=== PATIENT | female | born 1925 | race Caucasian/White ===

== ENCOUNTER → 2016-05-28 | Outpatient (CLI) | payer OTHER ==
[~2016-05-28] MED LIST: ACET-1311 PO; ASPI1TAB48 PO; BISA10SU7 PEG; CHOL2000 PO; CMD4 PO; DICL1GEL12 TOP; DILT30TA PO; EPP3/2 IM; LEVO25TA5 PO; LNX125 PO; METO-217 PO; MOML PO; PRT40 PO; SODIENE PR; TPRSR50 PO; WARF-283 PO; WARF-285 PO
[2016-05-28 08:14] LABS: PROTHROMBIN TIME (PATIENT) 46.8 SECONDS (9.0-12.0)
[2016-05-28 08:18] LABS: INR 4.1 (0.9-1.1)
== END ==
LOC: C.LABCC 07:42
PROVIDERS: ATTEND Internal Medicine
DX: I48.91 Unspecified atrial fibrillation (principal)

== ENCOUNTER → 2016-05-30 | Outpatient (CLI) | payer OTHER ==
[~2016-05-30] MED LIST changes: -BISA10SU7 PEG; -CHOL2000 PO; -DICL1GEL12 TOP; -LEVO25TA5 PO; -MOML PO; -PRT40 PO; -SODIENE PR; -WARF-283 PO; -WARF-285 PO
[2016-05-30 09:01] LABS: INR 2.6 (0.9-1.1); PROTHROMBIN TIME (PATIENT) 29.4 SECONDS (9.0-12.0)
== END ==
LOC: C.LABCC 08:36
PROVIDERS: ATTEND Internal Medicine
DX: I48.91 Unspecified atrial fibrillation (principal)

== ENCOUNTER → 2016-06-04 | Outpatient (CLI) | payer OTHER ==
[2016-06-04 08:42] LABS: INR 2.6 (0.9-1.1); PROTHROMBIN TIME (PATIENT) 28.9 SECONDS (9.0-12.0)
== END | disposition home or self-care (01) ==
LOC: C.LABCC 08:09
PROVIDERS: ATTEND Internal Medicine
DX: I48.91 Unspecified atrial fibrillation (principal)

== ENCOUNTER → 2016-06-12 | Outpatient (CLI) | payer OTHER ==
[2016-06-12 08:38] LABS: PROTHROMBIN TIME (PATIENT) 46.3 SECONDS (9.0-12.0)
[2016-06-12 09:14] LABS: INR 4.1 (0.9-1.1)
== END ==
LOC: C.LABCC 07:59
PROVIDERS: ATTEND Internal Medicine
DX: I48.91 Unspecified atrial fibrillation (principal)

== ENCOUNTER → 2016-06-19 | Outpatient (CLI) | payer OTHER ==
[2016-06-19 09:11] LABS: PROTHROMBIN TIME (PATIENT) 21.7 SECONDS (9.0-12.0)
== END ==
LOC: C.LABCC 08:41
PROVIDERS: ATTEND Internal Medicine
DX: I48.91 Unspecified atrial fibrillation (principal)

== ENCOUNTER → 2016-06-27 | Outpatient (CLI) | payer OTHER ==
[2016-06-27 10:31] LABS: INR 1.9 (0.9-1.1); PROTHROMBIN TIME (PATIENT) 20.8 SECONDS (9.0-12.0)
== END | disposition home or self-care (01) ==
LOC: C.LABCC 09:29
PROVIDERS: ATTEND Internal Medicine
DX: I48.91 Unspecified atrial fibrillation (principal)

== ENCOUNTER → 2016-07-12 | Outpatient (CLI) | payer OTHER ==
[2016-07-12 09:25] LABS: INR 1.8 (0.9-1.1); PROTHROMBIN TIME (PATIENT) 20.1 SECONDS (9.0-12.0)
== END | disposition home or self-care (01) ==
LOC: C.LABCC 08:18
PROVIDERS: ATTEND Internal Medicine
DX: I48.91 Unspecified atrial fibrillation (principal)

== ENCOUNTER → 2016-07-22 | Outpatient (CLI) | payer OTHER ==
[2016-07-22 08:45] LABS: INR 2.4 (0.9-1.1); PROTHROMBIN TIME (PATIENT) 26.1 SECONDS (9.0-12.0)
== END ==
LOC: C.LABCC 08:21
PROVIDERS: ATTEND Internal Medicine
DX: I48.0 Paroxysmal atrial fibrillation (principal)

== ENCOUNTER → 2016-07-29 | Outpatient (CLI) | payer OTHER ==
[2016-07-29 08:50] LABS: INR 2.3 (0.9-1.1); PROTHROMBIN TIME (PATIENT) 25.4 SECONDS (9.0-12.0)
== END ==
LOC: C.LABCC 08:24
PROVIDERS: ATTEND Internal Medicine
DX: I48.0 Paroxysmal atrial fibrillation (principal)

== ENCOUNTER → 2016-08-12 | Outpatient (CLI) | payer OTHER ==
[2016-08-12 10:53] LABS: INR 2.1 (0.9-1.1); PROTHROMBIN TIME (PATIENT) 23.7 SECONDS (9.0-12.0)
== END ==
LOC: C.LABCC 08:57
PROVIDERS: ATTEND Internal Medicine
DX: I48.0 Paroxysmal atrial fibrillation (principal)

== ENCOUNTER → 2016-08-27 | Outpatient (CLI) | payer OTHER ==
[2016-08-27 09:01] LABS: INR 2.2 (0.9-1.1); PROTHROMBIN TIME (PATIENT) 24.8 SECONDS (9.0-12.0)
== END ==
LOC: C.LABCC 08:17
PROVIDERS: ATTEND Internal Medicine
DX: I48.0 Paroxysmal atrial fibrillation (principal)

== ENCOUNTER → 2016-10-09 | Outpatient (CLI) | payer OTHER ==
[2016-10-09 12:15] LABS: MEAN CELL VOLUME 88.8 fL (80-100); MEAN CORPUSCULAR HEMOGLOBIN 29.2 pg (25-34); MEAN CORPUSCULAR HGB CONC 32.9 g/dl (32-36); PLATELET COUNT 185 K/uL (130-400); RED BLOOD COUNT 4.28 M/uL (4.2-5.4); WHITE BLOOD COUNT 5.73 K/uL (4.8-10.8)
== END | disposition home or self-care (01) ==
LOC: C.LABCC 14:00
PROVIDERS: ATTEND Internal Medicine
DX: D01.0 Carcinoma in situ of colon (principal)

== ENCOUNTER → 2016-10-28 | Outpatient (CLI) | payer OTHER ==
[2016-10-28 08:20] LABS: INR 1.9 (0.9-1.1); PROTHROMBIN TIME (PATIENT) 21.4 SECONDS (9.0-12.0)
== END ==
LOC: C.LABCC 07:50
PROVIDERS: ATTEND Internal Medicine
DX: I48.0 Paroxysmal atrial fibrillation (principal)

== ENCOUNTER → 2016-10-30 | Outpatient (CLI) | payer OTHER ==
[2016-10-30 12:35] LABS: ALT/SGPT 17 U/L (12-78); AST/SGOT 12 U/L (15-37); BLOOD UREA NITROGEN 21 mg/dl (7-18); CALCIUM 8.5 mg/dl (8.5-10.1); CARBON DIOXIDE 29 mmol/L (21-32); CHLORIDE 111 mmol/L (98-107); GLUCOSE 76 mg/dl (70-99); POTASSIUM 4.4 mmol/L (3.5-5.1); SODIUM 146 mmol/L (136-145)
[2016-10-30 12:46] LABS: ALB/GLOB RATIO 1.1 (0.9-2); ALKALINE PHOSPHATASE 68 U/L (45-117)
== END ==
LOC: C.LABCC 11:36
PROVIDERS: ATTEND Internal Medicine
DX: I10 Essential (primary) hypertension (principal); I48.0 Paroxysmal atrial fibrillation; D64.9 Anemia, unspecified; E55.9 Vitamin D deficiency, unspecified

== ENCOUNTER → 2016-11-05 | Outpatient (CLI) | payer OTHER | LOC: C.LABCC 07:50 | DX: I48.0 Paroxysmal atrial fibrillation (principal) ==

== ENCOUNTER → 2016-11-06 | Outpatient (CLI) | payer OTHER ==
[2016-11-06 08:49] LABS: INR 1.5 (0.9-1.1); PROTHROMBIN TIME (PATIENT) 15.9 SECONDS (9.0-12.0)
== END ==
LOC: C.LABCC 08:09
PROVIDERS: ATTEND Internal Medicine
DX: I48.0 Paroxysmal atrial fibrillation (principal)

== ENCOUNTER → 2016-11-15 | Outpatient (CLI) | payer OTHER ==
[2016-11-15 08:44] LABS: INR 2.1 (0.9-1.1); PROTHROMBIN TIME (PATIENT) 23.7 SECONDS (9.0-12.0)
== END ==
LOC: C.LABCC 07:47
PROVIDERS: ATTEND Internal Medicine
DX: I48.0 Paroxysmal atrial fibrillation (principal)

== ENCOUNTER → 2016-11-25 | Outpatient (CLI) | payer OTHER ==
[2016-11-25 15:48] LABS: INR 2.6 (0.9-1.1); PROTHROMBIN TIME (PATIENT) 29.4 SECONDS (9.0-12.0)
== END ==
LOC: C.LABCC 12:43
PROVIDERS: ATTEND Internal Medicine
DX: I48.0 Paroxysmal atrial fibrillation (principal)

== ENCOUNTER → 2016-12-04 | Outpatient (CLI) | payer OTHER ==
[2016-12-04 08:50] LABS: INR 2.2 (0.9-1.1); PROTHROMBIN TIME (PATIENT) 24.7 SECONDS (9.0-12.0)
== END ==
LOC: C.LABCC 07:56
PROVIDERS: ATTEND Internal Medicine
DX: I48.0 Paroxysmal atrial fibrillation (principal)

== ENCOUNTER → 2016-12-12 | Outpatient (CLI) | payer OTHER ==
[2016-12-12 10:45] LABS: THYROID STIMULATING HORMONE 2.48 uIu/ml (0.300-4.500)
== END ==
LOC: C.LABCC 10:13
PROVIDERS: ATTEND Internal Medicine
DX: E03.9 Hypothyroidism, unspecified (principal)

== ENCOUNTER → 2017-01-02 | Outpatient (CLI) | payer OTHER ==
[2017-01-02 11:05] LABS: PROTHROMBIN TIME (PATIENT) 40.7 SECONDS (9.0-12.0)
[2017-01-02 11:18] LABS: INR 3.6 (0.9-1.1)
== END ==
LOC: C.LABCC 09:50
PROVIDERS: ATTEND Internal Medicine
DX: I48.0 Paroxysmal atrial fibrillation (principal); E55.9 Vitamin D deficiency, unspecified

== ENCOUNTER → 2017-01-03 | Outpatient (CLI) | payer OTHER | END | disposition home or self-care (01) | LOC: C.LABCC 07:47 | PROVIDERS: ATTEND Internal Medicine | DX: E55.9 Vitamin D deficiency, unspecified (principal) ==

== ENCOUNTER → 2017-01-10 | Outpatient (CLI) | payer OTHER ==
[2017-01-10 08:51] LABS: INR 2.9 (0.9-1.1); PROTHROMBIN TIME (PATIENT) 31.9 SECONDS (9.0-12.0)
== END ==
LOC: C.LABCC 08:34
PROVIDERS: ATTEND Internal Medicine
DX: I48.0 Paroxysmal atrial fibrillation (principal)

== ENCOUNTER → 2017-01-15 | Outpatient (CLI) | payer OTHER | LOC: C.LABCC 09:48 | PROVIDERS: ATTEND Internal Medicine | DX: I48.0 Paroxysmal atrial fibrillation (principal) ==

== ENCOUNTER → 2017-01-16 | Outpatient (CLI) | payer OTHER ==
[2017-01-16 09:24] LABS: INR 3.2 (0.9-1.1); PROTHROMBIN TIME (PATIENT) 35.4 SECONDS (9.0-12.0)
== END ==
LOC: C.LABCC 08:27
PROVIDERS: ATTEND Internal Medicine
DX: I48.0 Paroxysmal atrial fibrillation (principal)

== ENCOUNTER → 2017-01-23 | Outpatient (CLI) | payer OTHER ==
[2017-01-23 09:21] LABS: PROTHROMBIN TIME (PATIENT) 43.4 SECONDS (9.0-12.0)
[2017-01-23 09:23] LABS: INR 3.8 (0.9-1.1)
== END ==
LOC: C.LABCC 08:45
PROVIDERS: ATTEND Internal Medicine
DX: I48.0 Paroxysmal atrial fibrillation (principal)

== ENCOUNTER → 2017-01-28 | Outpatient (CLI) | payer OTHER ==
[2017-01-28 12:03] LABS: INR 3.2 (0.9-1.1); PROTHROMBIN TIME (PATIENT) 36.1 SECONDS (9.0-12.0)
== END ==
LOC: C.LABCC 11:36
PROVIDERS: ATTEND Internal Medicine
DX: I48.0 Paroxysmal atrial fibrillation (principal)

== ENCOUNTER → 2017-02-03 | Outpatient (CLI) | payer OTHER ==
[2017-02-03 08:32] LABS: INR 2.7 (0.9-1.1); PROTHROMBIN TIME (PATIENT) 30.1 SECONDS (9.0-12.0)
== END ==
LOC: C.LABCC 08:06
PROVIDERS: ATTEND Internal Medicine
DX: I48.0 Paroxysmal atrial fibrillation (principal)

== ENCOUNTER → 2017-02-10 | Outpatient (CLI) | payer OTHER ==
[2017-02-10 10:59] LABS: INR 1.8 (0.9-1.1); PROTHROMBIN TIME (PATIENT) 19.2 SECONDS (9.0-12.0)
== END ==
LOC: C.LABCC 09:40
PROVIDERS: ATTEND Internal Medicine
DX: I48.0 Paroxysmal atrial fibrillation (principal)

== ENCOUNTER → 2017-02-13 | Outpatient (CLI) | payer OTHER | LOC: C.LABCC 08:02 | PROVIDERS: ATTEND Internal Medicine | DX: E03.9 Hypothyroidism, unspecified (principal) ==

== ENCOUNTER → 2017-02-17 | Outpatient (CLI) | payer OTHER ==
[2017-02-17 08:13] LABS: INR 1.7 (0.9-1.1); PROTHROMBIN TIME (PATIENT) 18.2 SECONDS (9.0-12.0)
== END ==
LOC: C.LABCC 07:47
PROVIDERS: ATTEND Internal Medicine
DX: I48.0 Paroxysmal atrial fibrillation (principal)

== ENCOUNTER → 2017-02-24 | Outpatient (CLI) | payer OTHER ==
[2017-02-24 08:37] LABS: INR 2.4 (0.9-1.1); PROTHROMBIN TIME (PATIENT) 27.2 SECONDS (9.0-12.0)
== END ==
LOC: C.LABCC 07:55
PROVIDERS: ATTEND Internal Medicine
DX: I48.0 Paroxysmal atrial fibrillation (principal)

== ENCOUNTER → 2017-03-03 | Outpatient (CLI) | payer OTHER ==
[2017-03-03 10:06] LABS: INR 2.7 (0.9-1.1); PROTHROMBIN TIME (PATIENT) 29.9 SECONDS (9.0-12.0)
== END ==
LOC: C.LABCC 09:21
PROVIDERS: ATTEND Internal Medicine
DX: I48.0 Paroxysmal atrial fibrillation (principal)

== ENCOUNTER → 2017-03-10 | Outpatient (CLI) | payer OTHER ==
[2017-03-10 09:18] LABS: INR 2.2 (0.9-1.1); PROTHROMBIN TIME (PATIENT) 24.7 SECONDS (9.0-12.0)
== END ==
LOC: C.LABCC 08:54
PROVIDERS: ATTEND Internal Medicine
DX: I48.0 Paroxysmal atrial fibrillation (principal)

== ENCOUNTER → 2017-03-24 | Outpatient (CLI) | payer OTHER ==
[2017-03-24 08:34] LABS: INR 2.3 (0.9-1.1); PROTHROMBIN TIME (PATIENT) 25.3 SECONDS (9.0-12.0)
== END ==
LOC: C.LABCC 08:14
PROVIDERS: ATTEND Internal Medicine
DX: I48.0 Paroxysmal atrial fibrillation (principal)

== ENCOUNTER → 2017-04-07 | Outpatient (CLI) | payer OTHER ==
[2017-04-07 09:21] LABS: INR 1.9 (0.9-1.1); PROTHROMBIN TIME (PATIENT) 20.9 SECONDS (9.0-12.0)
== END | disposition home or self-care (01) ==
LOC: C.LABCC 08:51
PROVIDERS: ATTEND Internal Medicine
DX: I48.0 Paroxysmal atrial fibrillation (principal)

== ENCOUNTER → 2017-04-15 | Outpatient (CLI) | payer OTHER ==
[2017-04-15 08:12] LABS: INR 2.6 (0.9-1.1); PROTHROMBIN TIME (PATIENT) 29.3 SECONDS (9.0-12.0)
== END ==
LOC: C.LABCC 07:53
PROVIDERS: ATTEND Internal Medicine
DX: I48.0 Paroxysmal atrial fibrillation (principal)

== ENCOUNTER → 2017-04-23 | Outpatient (CLI) | payer OTHER ==
[2017-04-23 09:11] LABS: INR 2.8 (0.9-1.1); PROTHROMBIN TIME (PATIENT) 31.8 SECONDS (9.0-12.0)
== END ==
LOC: C.LABCC 08:37
PROVIDERS: ATTEND Internal Medicine
DX: I48.0 Paroxysmal atrial fibrillation (principal)

== ENCOUNTER → 2017-05-09 | Outpatient (CLI) | payer OTHER ==
[2017-05-09 08:32] LABS: INR 2.7 (0.9-1.1); PROTHROMBIN TIME (PATIENT) 27.8 SECONDS (9.0-12.0)
== END ==
LOC: C.LABCC 07:59
PROVIDERS: ATTEND Internal Medicine
DX: I48.0 Paroxysmal atrial fibrillation (principal)

== ENCOUNTER 2017-05-19 10:39 | Inpatient (IN) | payer OTHER ==
[2017-05-19] VITALS (10 sets, daily range): BP systolic 96–119; BP diastolic 45–80; PULSE 85–113; TEMP 36.5–37; O2SAT 94–99; Ht 165.1 cm; Wt 82.5 kg
[~2017-05-19] VITALS: Ht 165.1 cm; Wt 82.5 kg
[2017-05-19] MEDS ORDERED: DILTIAZEM BOLUS / DRIP IV STA (10:47)
[2017-05-19] MEDS ORDERED: SODIUM CHLORIDE 0.9% 1000ML 500 ML IV STA (10:47)
[2017-05-19] MEDS ORDERED: ONDANSETRON INJ 2 MG/ML 2 ML VIAL IV STA (10:53)
[2017-05-19] MEDS ORDERED: DILTIAZEM HCL 5 MG/ML 5 ML VIAL BOLUS/OMNI IV ONE (11:00)
[2017-05-19] MEDS ORDERED: DILTIAZEM HCL INJ 125 MG in DEXTROSE 5% 100ML IV PRN (11:00)
--- NOTE | 2017-05-19 11:00 | EMERGENCY ROOM VISIT NOTE ---
History Report prepared by Donovan: Fior Ascencio Under the Supervision of: Dr. Kodi Hernandez M.D. First contact with patient: 10:42 Stated Complaint: GI ASSEESSMENT History of Present Illness The patient is a 89 year old female who presents to the Emergency Room with complaints of an episode of vomiting "coffee ground" like material. The patient has dementia and a colostomy. The patient's colostomy had black stool in it as well. Per EMS, the patient's blood sugar level was 166 upon arrival. The patient has a history of atrial fibrillation and is on Coumadin. Her initial blood pressure pressure was low but has rebounded with IV fluids. The patient is a full code. History limited secondary to the patient's dementia. Source of History: patient History Limited By: dementia Position: other (generalized) Quality: other (vomiting) Timing: other (episode) Associated Symptoms: + vomiting Review of Systems ROS limited secondary to the patient's dementia. 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 (2) History of - hysterectomy Family History Diabetes mellitus FHx: heart disease Social History Smoking Status: Never Smoker Alcohol Use: none Drug Use: none Marital Status: Housing Status: lives alone Occupation Status: retired Current/Historical Medications Scheduled Aspirin (Aspirin Low Dose), 81 MG PO DAILY Cholecalciferol (Vitamin D3), 1 CAP PO DAILY Diclofenac Sodium (Topical) (Voltaren 1% Top Gel), 2 GM TOP QID Diclofenac Sodium (Topical) (Voltaren 1% Top Gel), 4 GM TOP QID Digoxin (Digoxin), 0.125 MG PO DAILY@16 Diltiazem Hcl (Cardizem), 30 MG PO BID Levothyroxine Sodium (Levothyroxine Sodium), 1 TAB PO DAILY Metoprolol Succinate (Metoprolol Succinate ER), 50 MG PO BID Warfarin Sodium (Warfarin Sodium), 1 TAB PO MWF Warfarin Sodium (Warfarin Sodium), 1 TAB PO [id number] Scheduled PRN Acetaminophen (Tylenol), 650 MG PO Q6 PRN for Pain or Fever Bisacodyl (Bisac-Evac), 1 SUPP PEG UD PRN for IF NO EFFECT FROM MOM Epinephrine (Epipen), 0.3 MG IM UD PRN for ALLERGIC REACTION Magnesium Hydroxide (Milk Of Magnesia), 30 ML PO UD PRN for NO BM X 3 DAYS Sodium Phosphate/Biphosphate (Fleet Enema), 1 EA WV UD PRN for ON DAY 4 IF NO BM AFTER SUPPOS Allergies Coded Allergies: Iodine (Verified Allergy, Severe, UNKNOWN, 05/19/17) "I DON'T KNOW WHAT MY REACTION TO IODINE IS. A DOCTOR ONE TIME KNEW I WAS ALLERGIC" ...? Rabbit Epithelium (Verified Allergy, Severe, SCRATCHES?, 05/19/17) BEE STING (Verified Allergy, Unknown, UNSURE, 05/19/17) Sulfa Drugs (Verified Allergy, Unknown, ITCHING, 05/19/17) Shellfish (Verified Adverse Reaction, Unknown, VOMITING, 05/19/17) Physical Exam Vital Signs Date Time Temp Pulse Resp B/P (MAP) Pulse Ox O2 Delivery O2 Flow Rate FiO2 05/19/17 12:32 90/66 05/19/17 12:23 97 Nasal Cannula 2.0 05/19/17 12:22 80 18 97 05/19/17 12:17 36.5 86 18 132/58 97 Nasal Cannula 2.0 05/19/17 12:12 111/55 05/19/17 12:11 78 20 111/55 97 Nasal Cannula 2.0 05/19/17 12:07 84 23 99 05/19/17 12:05 89 22 101/55 97 Nasal Cannula 2.0 05/19/17 12:02 101/55 05/19/17 11:54 89 19 97 05/19/17 11:47 98/56 05/19/17 11:47 76 18 98/56 98 Nasal Cannula 2.0 05/19/17 11:43 78 22 83/47 96 Nasal Cannula 2.0 05/19/17 11:40 83/47 05/19/17 11:39 72 19 05/19/17 11:37 78 22 92/53 98 Nasal Cannula 2.0 05/19/17 11:32 92/53 05/19/17 11:30 91/48 05/19/17 11:30 90 20 91/48 94 Nasal Cannula 2.0 05/19/17 11:29 95 Nasal Cannula 2.0 05/19/17 11:27 78/45 05/19/17 11:25 73/51 05/19/17 11:25 90 20 84/54 91 Room Air 73/51 05/19/17 11:24 89 21 85/54 74 05/19/17 11:16 100 20 99/57 94 Room Air 05/19/17 11:15 99/57 05/19/17 11:09 88 23 94 05/19/17 10:54 128 05/19/17 10:54 92 24 97 05/19/17 10:53 36.5 117 18 120/77 96 Room Air 05/19/17 10:42 120/77 Physical Exam GENERAL: Patient is in no acute distress. HEENT: No acute trauma, normocephalic atraumatic, mucous membranes moist, no nasal congestion, no scleral icterus. NECK: No stridor, no adenopathy, no meningismus, trachea is midline. LUNGS: Clear to auscultation bilaterally, no wheeze, no rhonchi, breath sounds equal. HEART: Tachycardic and irregular, no murmur. ABDOMEN: Soft, nontender, bowel sounds positive, no hernias, no peritonitis. Colostomy with black liquidy stool noted, stool testing is heme positive. EXTREMITIES: Mild bilateral pedal edema. No cyanosis, full range of motion of all the joints without pain or difficulty, no signs for acute trauma. NEUROLOGIC: No acute motor or sensory deficits, no focal weakness. Awake and alert. SKIN: Pale, no rash, no jaundice, no diaphoresis. Medical Decision & Procedures ER Provider Diagnostic Interpretation: Radiology results as stated below per my review and radiologist interpretation: CHEST ONE VIEW PORTABLE FINDINGS: Atherosclerosis of the aortic arch. Cardiac silhouette top normal in size. Round 11 mm nodule in the left upper lobe, which in retrospect was present on the prior exam and is essentially unchanged in size. This has been stable for multiple years and was better demonstrated on chest CT from 12/12/2014. No other focal infiltrate. No large effusion or pneumothorax. Degenerative changes of the thoracic spine. Upper abdomen normal. IMPRESSION: 1. No acute cardiopulmonary disease. Electronically signed by: Jamison Ferguson M.D. Laboratory Results 05/19/17 10:56 Red Blood Count 3.54, Mean Corpuscular Volume 90.1, Mean Corpuscular Hemoglobin 29.7, Mean Corpuscular Hemoglobin Concent 32.9, Mean Platelet Volume 10.5, Neutrophils (%) (Auto) 78.7, Lymphocytes (%) (Auto) 15.1, Monocytes (%) (Auto) 5.4, Eosinophils (%) (Auto) 0.1, Basophils (%) (Auto) 0.3, Neutrophils # (Auto) 5.93, Lymphocytes # (Auto) 1.14, Monocytes # (Auto) 0.41, Eosinophils # (Auto) 0.01, Basophils # (Auto) 0.02 05/19/17 10:56 Test 05/19/17 10:56 05/19/17 11:00 05/19/17 11:10 White Blood Count 7.54 K/uL (4.8-10.8) Red Blood Count 3.54 M/uL (4.2-5.4) Hemoglobin 10.5 g/dL (12.0-16.0) Hematocrit 31.9 % (37-47) Mean Corpuscular Volume 90.1 fL (80-100) Mean Corpuscular Hemoglobin 29.7 pg (25-34) Mean Corpuscular Hemoglobin Concent 32.9 g/dl (32-36) Platelet Count 219 K/uL (130-400) Mean Platelet Volume 10.5 fL (7.4-10.4) Neutrophils (%) (Auto) 78.7 % Lymphocytes (%) (Auto) 15.1 % Monocytes (%) (Auto) 5.4 % Eosinophils (%) (Auto) 0.1 % Basophils (%) (Auto) 0.3 % Neutrophils # (Auto) 5.93 K/uL (1.4-6.5) Lymphocytes # (Auto) 1.14 K/uL (1.2-3.4) Monocytes # (Auto) 0.41 K/uL (0.11-0.59) Eosinophils # (Auto) 0.01 K/uL (0-0.5) Basophils # (Auto) 0.02 K/uL (0-0.2) RDW Standard Deviation 45.8 fL (36.4-46.3) RDW Coefficient of Variation 13.8 % (11.5-14.5) Immature Granulocyte % (Auto) 0.4 % Immature Granulocyte # (Auto) 0.03 K/uL (0.00-0.02) Prothrombin Time 31.1 SECONDS (9.0-12.0) Prothromb Time International Ratio 3.0 (0.9-1.1) Activated Partial Thromboplast Time 34.9 SECONDS (21.0-31.0) Partial Thromboplastin Ratio 1.3 Est Creatinine Clear Calc Drug Dose 39.9 ml/min Estimated GFR () 56.5 Estimated GFR (Non- 48.7 BUN/Creatinine Ratio 65.2 (10-20) Calcium Level 8.1 mg/dl (8.5-10.1) Magnesium Level 1.8 mg/dl (1.8-2.4) Total Bilirubin 0.4 mg/dl (0.2-1) Aspartate Amino Transf (AST/SGOT) 10 U/L (15-37) Alanine Aminotransferase (ALT/SGPT) 16 U/L (12-78) Alkaline Phosphatase 57 U/L (45-117) Troponin I < 0.015 ng/ml (0-0.045) Total Protein 6.1 gm/dl (6.4-8.2) Albumin 3.1 gm/dl (3.4-5.0) Globulin 3.0 gm/dl (2.5-4.0) Albumin/Globulin Ratio 1.0 (0.9-2) Lipase 93 U/L (73-393) Digoxin Level 0.6 ng/ml (0.8-2.0) Bedside Prothrombin Time INR 3.6 (0.9-1.1) Bedside Hemoglobin 9.5 g/dl (12.0-16.0) Bedside Hematocrit 28 % (37-47) Bedside Sodium 144 mEq/L (135-144) Bedside Potassium 4.7 mEq/L (3.3-5.0) Bedside Chloride 107 mEq/L (101-112) Bedside Total CO2 27 mEq/l (24-31) Anion Gap 16.0 mmol/L (16-25) Bedside Blood Urea Nitrogen 59 mg/dl (7-18) Bedside Creatinine 1.1 mg/dl (0.6-1.3) Bedside Glucose (other) 111 mg/dl (70-99) Bedside Ionized Calcium (Artie) 1.18 mmol/l (1.12-1.32) Laboratory results reviewed by me. Medications Administered Medications (Trade) Dose Ordered Sig/Klaus Route Start Time Stop Time Status Last Admin Dose Admin Sodium Chloride 500 ml @ 999 mls/hr Q31M STAT IV 05/19/17 10:47 05/19/17 11:17 DC 05/19/17 11:01 999 MLS/HR Pantoprazole Sodium (Protonix IV Bolus/Drip) 1 ea NOW STAT IV 05/19/17 10:47 05/19/17 10:51 DC 05/19/17 11:36 1 EA Diltiazem HCl (Cardizem Bolus / Drip) 1 ea NOW STAT IV 05/19/17 10:47 05/19/17 10:51 DC 05/19/17 11:21 1 EA Ondansetron HCl (Zofran Inj) 4 mg NOW STAT IV 05/19/17 10:53 05/19/17 10:54 DC 05/19/17 11:01 4 MG Diltiazem HCl (Cardizem Inj) 10 mg TODAY@1100 ONCE IV 05/19/17 11:00 05/19/17 11:01 DC 05/19/17 11:21 10 MG Diltiazem HCl 125 mg/Dextrose 125 ml @ 0 mls/hr Q0M PRN IV 05/19/17 11:00 06/18/17 10:59 05/19/17 11:20 5 MLS/HR Pantoprazole Sodium 80 mg/ Dextrose 120 ml @ 480 mls/hr TODAY@1115 ONCE IV 05/19/17 11:15 05/19/17 11:29 DC 05/19/17 11:36 480 MLS/HR Pantoprazole Sodium 40 mg/ Dextrose 100 ml @ 20 mls/hr Q5H IV 05/19/17 11:30 05/19/17 16:29 05/19/17 11:36 20 MLS/HR Sodium Chloride 1,000 ml @ 999 mls/hr Q1H1M STAT IV 05/19/17 11:32 05/19/17 12:32 DC 05/19/17 11:36 999 MLS/HR Phytonadione 10 mg/Sodium Chloride 51 ml @ 102 mls/hr ONE ONCE IV 05/19/17 11:45 05/19/17 12:14 DC 05/19/17 12:07 102 MLS/HR Prothrombin Complex Concent (Human) 2000 unit/ Syringe 80 ml @ 10 mls/min TODAY@1200 ONCE IV 05/19/17 12:00 05/19/17 12:07 DC 05/19/17 11:52 10 MLS/MIN ECG Indication: vomiting Rate (beats per minute): 119 Rhythm: atrial fibrillation Findings: no acute ischemic change, no ectopy, other (diffuse nonspecific T- wave abnormality) ED Course 1043: The patient was evaluated in room A4B. A complete history and physical exam was performed. 1047: Ordered Diltiazem HCl 10 mg IV, Pantoprazole Sodium 80 mg/Dextrose 120 ml @ 480 mls/hr IV. 1053: Ordered Zofran Inj 4 mg IV. 1100: Diltiazem HCl 125 mg/Dextrose 125 ml @ 0 mls/hr Protocol IV, Diltiazem HCl 10 mg IV. 1115: Ordered Pantoprazole Sodium 80 mg/Dextrose 120 ml @ 480 mls/hr IV. 1130: Ordered Pantoprazole Sodium 40 mg/Dextrose 100 ml @ 20 mls/hr IV. 1132: Ordered Sodium Chloride 1000 ml @ 999 mls/hr IV. 1135: The patient looks better and is resting comfortably. 1143: Discussed the patient's case with Dr. Portillo. The patient will be evaluated for further management. 1145: Ordered Phytonadione 10 mg/Sodium Chloride 51 ml @ 102 mls/hr Protocol IV. 1157: Discussed the patient's case with the Senior Product Integrity Engineer grain operations manager. He will come evaluate the patient. 1212: Discussed the patient's case with Dr. Fuentes. He will do a scope on the patient when she is more stable. 1217: The Power of Senior Report Developer has been contacted. The chip tester is in the room. The patient's heart rate and blood pressure are improved. 1339: Dr. Almaraz will do an endoscopy around 2 pm today. Medical Decision Differential diagnoses include: upper or lower GI bleed, coagulopathy anemia, dehydration, electrolyte abnormality, dysrhythmia, cardiac ischemia There is no leukocytosis. The patient is anemic with a hemoglobin of around 10. No significant electrolyte abnormality, kidney failure or hepatitis. There is no pancreatitis. INR is elevated at over 3. Digoxin level is not toxic. Chest film does not show pneumonia or free air. EKG shows a rapid A. fib, no acute ischemia. Cardiac enzyme testing times one is not consistent with acute cardiac injury. The patient presents hypotensive, tachycardic. She is suffering from a GI bleed. She was aggressively managed. The patient received IV saline. She received 1.5 L IV. She received a bolus of IV Protonix and was placed on a Protonix drip. She was given a bolus of IV diltiazem and placed on a diltiazem drip. She received IV Zofran for nausea. The patient was ordered for blood for transfusion although, it is not yet ready to be given. The patient's power of collections attorney was contacted about the case and did consent to the blood transfusion. The patient consented as well. With the above treatment, the patient's heart rate is now in the 80s or 90s. Her blood pressure was initially on the low side but has rebounded to over 100 with the IV hydration. I did contact the coagulation consult-the patient received IV vitamin K and IV K Centra based on her recommendations. The patient will be brought into the hospital. I did talk with the on-call chip tester, the on-call medical physician, the on-call GI doctor. They are all aware and will be involved in the case. Case management has been involved. Medication Reconcilliation Current Medication List: was personally reviewed by me Blood Pressure Screening Patient's blood pressure: Low blood pressure Blood pressure disposition: Referred to PCP (evaluated by hopsitalist) Consults Time Called: 1140 Consulting Physician: Dr. Portillo Returned Call: 1143 Discussed the patient's case. The patient will be evaluated for further management. Additional Consults: Time Called: 1153 Consulted Physician: Senior Product Integrity Engineer grain operations manager Returned Call: [phone] Additional Comments: Discussed the patient's case. He will come and evaluate the patient. Time Called: 1153 Consulted Physician: Dr. Fuentes Returned Call: [phone] Additional Comments: Discussed the patient's case. He will do a scope on the patient when she is more stable. Impression Primary Impression: GI bleed Additional Impressions: Hypotension Rapid atrial fibrillation Coagulopathy Critical Care I have personally spent greater than 40 minutes of critical care time in the direct management of this patient. This includes bedside care, interpretation of diagnostic studies, and testing, discussion with consultants, patient, and family members, and other required patient management activities. This 40 minutes is in excess of all separately billable procedures. Scribe Attestation The scribe's documentation has been prepared under my direction and personally reviewed by me in its entirety. I confirm that the note above accurately reflects all work, treatment, procedures, and medical decision making performed by me. Departure Information Dispostion Being Evaluated By Hospitalist Referrals [facility] (PCP) Problem Qualifiers
[2017-05-19] MEDS ORDERED: PANTOprazole INJ 80 MG in DEXTROSE 5% 100ML IV ONE (11:15)
[2017-05-19 11:19] LABS: BASO % 0.3 %; BASO ABS # 0.02 K/uL (0-0.2); COMPLETE YES; EOS % 0.1 %; HEMATOCRIT 31.9 % (37-47); IG% 0.4 %; LYMPH % 15.1 %; LYMPH ABS # 1.14 K/uL (1.2-3.4); MEAN CELL VOLUME 90.1 fL (80-100); MEAN CORPUSCULAR HEMOGLOBIN 29.7 pg (25-34); MEAN CORPUSCULAR HGB CONC 32.9 g/dl (32-36); MEAN PLATELET VOLUME 10.5 fL (7.4-10.4); MONO % 5.4 %; NEUT % 78.7 %; PLATELET COUNT 219 K/uL (130-400); RED BLOOD COUNT 3.54 M/uL (4.2-5.4); WHITE BLOOD COUNT 7.54 K/uL (4.8-10.8)
[2017-05-19 11:22] LABS: ISTAT CREATININE 1.1 mg/dl (0.6-1.3); ISTAT HEMOGLOBIN 9.5 g/dl (12.0-16.0); ISTAT IONIZED CALCIUM 1.18 mmol/l (1.12-1.32)
--- NOTE | 2017-05-19 11:28 | DIAGNOSTIC IMAGING REPORT ---
CHEST ONE VIEW PORTABLE CLINICAL HISTORY: 89 years-old Female presenting with EVALUATE GI BLEED. TECHNIQUE: Portable upright AP view of the chest was obtained. COMPARISON: 05/01/2016. FINDINGS: Atherosclerosis of the aortic arch. Cardiac silhouette top normal in size. Round 11 mm nodule in the left upper lobe, which in retrospect was present on the prior exam and is essentially unchanged in size. This has been stable for multiple years and was better demonstrated on chest CT from 12/12/2014. No other focal infiltrate. No large effusion or pneumothorax. Degenerative changes of the thoracic spine. Upper abdomen normal. IMPRESSION: 1. No acute cardiopulmonary disease. Electronically signed by: Jamison Ferguson M.D. 05/19/2017 11:27 AM Dictated Date/Time: 05/19/2017 11:24 AM
[2017-05-19] MEDS ORDERED: PANTOprazole INJ 40 MG in DEXTROSE 5% 100ML IV SCH (11:30)
[2017-05-19] MEDS ORDERED: SODIUM CHLORIDE 0.9% 1000ML 1,000 ML IV STA (11:32)
[2017-05-19 11:38] LABS: ALT/SGPT 16 U/L (12-78); BLOOD UREA NITROGEN 67 mg/dl (7-18); BUN/CREATININE RATIO 65.2 (10-20); CALCIUM 8.1 mg/dl (8.5-10.1); CARBON DIOXIDE 26 mmol/L (21-32); CHLORIDE 110 mmol/L (98-107); CREATININE 1.02 mg/dl (0.60-1.20); GLUCOSE 109 mg/dl (70-99); MAGNESIUM 1.8 mg/dl (1.8-2.4); POTASSIUM 4.7 mmol/L (3.5-5.1); SODIUM 144 mmol/L (136-145)
[2017-05-19 11:43] LABS: ALKALINE PHOSPHATASE 57 U/L (45-117); AST/SGOT 10 U/L (15-37)
[2017-05-19] MEDS ORDERED: PHYTONADIONE INJ 10 MG in SODIUM CHLORIDE 0.9% 50ML 50 ML IV ONE (11:45)
[2017-05-19 11:48] LABS: PARTIAL THROMBOPLASTIN RATIO 1.3; PROTHROMBIN TIME (PATIENT) 31.1 SECONDS (9.0-12.0)
[2017-05-19] MEDS ORDERED: PROTHROMBIN COMP CONC- KCENTRA 2,000 UNIT in SYRINGE 0 ML IV ONE (12:00)
[2017-05-19] MEDS ORDERED: MOML PO (12:11)
[2017-05-19] MEDS ORDERED: LEVO25TA5 PO (12:11)
[2017-05-19] MEDS ORDERED: SODIENE PR (12:11)
[2017-05-19] MEDS ORDERED: WARF-285 PO (12:11)
[2017-05-19] MEDS ORDERED: WARF-283 PO (12:11)
[2017-05-19] MEDS ORDERED: DICL1GEL12 TOP (12:11)
[2017-05-19] MEDS ORDERED: BISA10SU7 PEG (12:11)
[2017-05-19] MEDS ORDERED: CHOL2000 PO (12:11)
[2017-05-19] MEDS ORDERED: ACETAMINOPHEN 325 MG TAB PO PRN ×2 (12:30)
[2017-05-19] MEDS ORDERED: DICLOFENAC SOD 1% GEL 100 GM TUBE EXT PRN (12:30)
[2017-05-19] MEDS ORDERED: ICU PROTOCOL FOR HYPERGLYCEMIA PRN (12:30)
[2017-05-19] MEDS ORDERED: MAGNESIUM HYDROXIDE SUSP 30 ML UDC PO PRN (12:30)
--- NOTE | 2017-05-19 12:58 | History and Physical ---
History & Physical Date & Time of Service: May 19, 2017 at 12:46 Chief Complaint: Gi Asseessment Primary Care Physician: Flaco Lucero History of Present Illness Source: patient, hospital records, other 89 years with past medical history of colon cancer status post resection and colostomy, chronic atrial fibrillation on Coumadin, hypertension, CAD and previous GI bleed in April 2016. Patient is a resident at [facility]. Was in her regular state of health until this morning. Recent does have some element of dementia but she was able to give me an accurate history of present illness, she was oriented to time place and person. She said that she woke up and found that her colostomy bag is full of black color feces. After that she said that she got sick in her stomach and she threw up. She was very embarrassed that she didn't do up in the pocket.. She said she used a towel then she called the nurse and apologized to her about the miss . After that she follow-up again 3 times. As per nursing staff she did have coffee-ground emesis. She was sent to the hospital for further evaluation and management. Her blood pressure was low, she had a tachycardia more than 120. Received multiple fluid boluses. INR was 3.6 and she received vitamin K and k centra Past Medical/Surgical History Medical Problems: (1) Altered mental status Status: Resolved (2) Atrial fibrillation Status: Chronic (3) Benign hypertension Status: Chronic (4) Carcinoma of colon Status: Resolved (5) Heart disease Status: Chronic (6) Influenza A Status: Resolved (7) TIA (transient ischemic attack) Status: Resolved Surgical Problems: (1) Colostomy in place Status: Resolved (2) History of - hysterectomy Status: Resolved Family History Diabetes mellitus FHx: heart disease Social History Smoking Status: Never Smoker Drug Use: none Marital Status: Housing status: lives alone Occupational Status: retired Immunizations History of Influenza Vaccine: Yes Influenza Vaccine Date: Feb 05, 2009 History of Tetanus Vaccine?: Yes History of Pneumococcal: Yes Pneumococcal Date: Feb 05, 2009 History of Hepatitis B Vaccine: Unknown Allergies Coded Allergies: Iodine (Verified Allergy, Severe, UNKNOWN, 05/19/17) "I DON'T KNOW WHAT MY REACTION TO IODINE IS. A DOCTOR ONE TIME KNEW I WAS ALLERGIC" ...? Rabbit Epithelium (Verified Allergy, Severe, SCRATCHES?, 05/19/17) BEE STING (Verified Allergy, Unknown, UNSURE, 05/19/17) Sulfa Drugs (Verified Allergy, Unknown, ITCHING, 05/19/17) Shellfish (Verified Adverse Reaction, Unknown, VOMITING, 05/19/17) Home Medications Scheduled Aspirin (Aspirin Low Dose), 81 MG PO DAILY Cholecalciferol (Vitamin D3), 1 CAP PO DAILY Diclofenac Sodium (Topical) (Voltaren 1% Top Gel), 2 GM TOP QID Diclofenac Sodium (Topical) (Voltaren 1% Top Gel), 4 GM TOP QID Digoxin (Digoxin), 0.125 MG PO DAILY@16 Diltiazem Hcl (Cardizem), 30 MG PO BID Levothyroxine Sodium (Levothyroxine Sodium), 1 TAB PO DAILY Metoprolol Succinate (Metoprolol Succinate ER), 50 MG PO BID Warfarin Sodium (Warfarin Sodium), 1 TAB PO MWF Warfarin Sodium (Warfarin Sodium), 1 TAB PO 4XWK Scheduled PRN Acetaminophen (Tylenol), 650 MG PO Q6 PRN for Pain or Fever Bisacodyl (Bisac-Evac), 1 SUPP PEG UD PRN for IF NO EFFECT FROM MOM Epinephrine (Epipen), 0.3 MG IM UD PRN for ALLERGIC REACTION Magnesium Hydroxide (Milk Of Magnesia), 30 ML PO UD PRN for NO BM X 3 DAYS Sodium Phosphate/Biphosphate (Fleet Enema), 1 EA HI UD PRN for ON DAY 4 IF NO BM AFTER SUPPOS Review of Systems Constitutional: + weakness, + fatigue, No fever, No chills, No sweats, No weight loss, No problem reported Eyes: No worsening of vision, No eye pain, No redness, No discharge, No diplopia, No problem reported ENT: No hearing loss, No unusual epistaxis, No nasal symptoms, No sore throat, No tinnitus, No dental problems, No trouble swallowing, No problem reported Respiratory: No cough, No sputum, No wheezing, No shortness of breath, No dyspnea on exertion, No dyspnea at rest, No hemoptysis, No problem reported Cardiovascular: No chest pain, No orthopnea, No PND, No edema, No claudication , No palpitations, No problem reported Abdomen: + nausea, + vomiting, + problem reported (black feces in colostomy bag ), No pain, No diarrhea, No constipation, No GI bleeding Musculoskeletal: No joint pain, No muscle pain, No swelling, No calf pain, No problem reported Genitourinary - Female: No dysuria, No urinary frequency, No urinary urgency, No urinary incontinence, No urinary retention, No hematuria, No dysmenorrhea, No menorrhagia, No metrorrhagia, No rash, No vaginal bleeding, No vaginal discharge, No vaginal itching, No vulvodynia, No , No problem reported Neurologic: + problem reported (she said that she uses a wheelchair, but physical therapist told her she can walk without), No memory loss, No paralysis , No weakness, No numbness/tingling, No vertigo, No balance problems Psychiatric: No depression symptoms, No anhedonism, No anxiety, No insomnia, No substance abuse, No problem reported Endocrine: + fatigue, No excessive thirst, No excessive urination, No problem reported Hematologic / Lymphatic: No abnormal bleeding/bruising, No clotting problems, No swollen lymph nodes, No night sweats, No problem reported Integumentary: No rash, No itch, No new/changing skin lesions, No color change , No bleeding, No problem reported Physical Exam Vital Signs Date Time Temp Pulse Resp B/P (MAP) Pulse Ox O2 Delivery O2 Flow Rate FiO2 05/19/17 12:37 83 19 99 05/19/17 12:35 96/59 05/19/17 12:34 36.5 86 20 96/59 99 2.0 05/19/17 12:32 90/66 05/19/17 12:23 97 Nasal Cannula 2.0 05/19/17 12:22 80 18 97 05/19/17 12:17 36.5 86 18 132/58 97 Nasal Cannula 2.0 05/19/17 12:12 111/55 05/19/17 12:11 78 20 111/55 97 Nasal Cannula 2.0 05/19/17 12:07 84 23 99 05/19/17 12:05 89 22 101/55 97 Nasal Cannula 2.0 05/19/17 12:02 101/55 05/19/17 11:54 89 19 97 05/19/17 11:47 98/56 05/19/17 11:47 76 18 98/56 98 Nasal Cannula 2.0 05/19/17 11:43 78 22 83/47 96 Nasal Cannula 2.0 05/19/17 11:40 83/47 05/19/17 11:39 72 19 05/19/17 11:37 78 22 92/53 98 Nasal Cannula 2.0 05/19/17 11:32 92/53 05/19/17 11:30 91/48 05/19/17 11:30 90 20 91/48 94 Nasal Cannula 2.0 05/19/17 11:29 95 Nasal Cannula 2.0 05/19/17 11:27 78/45 05/19/17 11:25 73/51 05/19/17 11:25 90 20 84/54 91 Room Air 73/51 05/19/17 11:24 89 21 85/54 74 05/19/17 11:16 100 20 99/57 94 Room Air 05/19/17 11:15 99/57 05/19/17 11:09 88 23 94 05/19/17 10:54 128 05/19/17 10:54 92 24 97 05/19/17 10:53 36.5 117 18 120/77 96 Room Air 05/19/17 10:42 120/77 General Appearance: + moderate distress, + obese Eyes: normal inspection, EOMI ENT: normal ENT inspection, hearing grossly normal Neck: supple Respiratory/Chest: chest non-tender, lungs clear, normal breath sounds, no respiratory distress, no accessory muscle use Cardiovascular: regular rate, rhythm, no edema, no gallop, no JVD, normal peripheral pulses, + systolic murmur Abdomen/GI: non tender, soft, no organomegaly, no pulsatile mass, + pertinent finding (colostomy bag is full of black melena) Back: normal inspection Extremities/Musculoskelatal: normal inspection, no calf tenderness, normal capillary refill, no pedal edema 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, no motor/sensory deficits, alert, normal mood/affect, normal reflexes, oriented x 3, + pertinent finding (has slightly weekly collection for details, but able to give history and to answer questions appropriately) Skin: no rash, + pallor Diagnostics Laboratory Results Results Past 24 Hours Test 05/19/17 10:56 05/19/17 11:00 05/19/17 11:10 05/19/17 12:25 Range/Units White Blood Count 7.54 4.8-10.8 K/uL Red Blood Count 3.54 4.2-5.4 M/uL Hemoglobin 10.5 12.0-16.0 g/dL Hematocrit 31.9 37-47 % Mean Corpuscular Volume 90.1 80-100 fL Mean Corpuscular Hemoglobin 29.7 25-34 pg Mean Corpuscular Hemoglobin Concent 32.9 32-36 g/dl Platelet Count 219 130-400 K/uL Mean Platelet Volume 10.5 7.4-10.4 fL Neutrophils (%) (Auto) 78.7 % Lymphocytes (%) (Auto) 15.1 % Monocytes (%) (Auto) 5.4 % Eosinophils (%) (Auto) 0.1 % Basophils (%) (Auto) 0.3 % Neutrophils # (Auto) 5.93 1.4-6.5 K/uL Lymphocytes # (Auto) 1.14 1.2-3.4 K/uL Monocytes # (Auto) 0.41 0.11-0.59 K/uL Eosinophils # (Auto) 0.01 0-0.5 K/uL Basophils # (Auto) 0.02 0-0.2 K/uL RDW Standard Deviation 45.8 36.4-46.3 fL RDW Coefficient of Variation 13.8 11.5-14.5 % Immature Granulocyte % (Auto) 0.4 % Immature Granulocyte # (Auto) 0.03 0.00-0.02 K/uL Prothrombin Time 31.1 9.0-12.0 SECONDS Prothromb Time International Ratio 3.0 0.9-1.1 Activated Partial Thromboplast Time 34.9 21.0-31.0 SECONDS Partial Thromboplastin Ratio 1.3 Sodium Level 144 136-145 mmol/L Potassium Level 4.7 3.5-5.1 mmol/L Chloride Level 110 98-107 mmol/L Carbon Dioxide Level 26 21-32 mmol/L Anion Gap 8.0 16.0 16-25 mmol/L Blood Urea Nitrogen 67 7-18 mg/dl Creatinine 1.02 0.60-1.20 mg/dl Est Creatinine Clear Calc Drug Dose 39.9 ml/min Estimated GFR () 56.5 Estimated GFR (Non- 48.7 BUN/Creatinine Ratio 65.2 10-20 Random Glucose 109 70-99 mg/dl Calcium Level 8.1 8.5-10.1 mg/dl Magnesium Level 1.8 1.8-2.4 mg/dl Total Bilirubin 0.4 0.2-1 mg/dl Aspartate Amino Transf (AST/SGOT) 10 15-37 U/L Alanine Aminotransferase (ALT/SGPT) 16 12-78 U/L Alkaline Phosphatase 57 45-117 U/L Troponin I < 0.015 0-0.045 ng/ml Total Protein 6.1 6.4-8.2 gm/dl Albumin 3.1 3.4-5.0 gm/dl Globulin 3.0 2.5-4.0 gm/dl Albumin/Globulin Ratio 1.0 0.9-2 Lipase 93 73-393 U/L Digoxin Level 0.6 0.8-2.0 ng/ml Bedside Prothrombin Time INR 3.6 0.9-1.1 Bedside Hemoglobin 9.5 12.0-16.0 g/dl Bedside Hematocrit 28 37-47 % Bedside Sodium 144 135-144 mEq/L Bedside Potassium 4.7 3.3-5.0 mEq/L Bedside Chloride 107 101-112 mEq/L Bedside Total CO2 27 24-31 mEq/l Bedside Blood Urea Nitrogen 59 7-18 mg/dl Bedside Creatinine 1.1 0.6-1.3 mg/dl Bedside Glucose (other) 111 70-99 mg/dl Bedside Ionized Calcium (Artie) 1.18 1.12-1.32 mmol/l Microbiology Results 05/19/17 MRSA DNA Surveillance Screen, Mally Batch Pending Impression Assessment and Plan 89 years with past medical history of colon cancer status post resection and colostomy, chronic atrial fibrillation on Coumadin, hypertension, CAD and previous GI bleed in April 2016. Presented with upper GI bleed Assessment Upper GI bleed/coffee-ground emesis/melena and colostomy bag Acute blood loss anemia secondary to above Coumadin coagulopathy status post K centra / and vit K Atrial fibrillation with RVR Hypovolemic shock responded to IV fluids Coronary artery disease Baseline hypertension, currently hypotensive as mentioned above Dementia, mild able to communicate and give consent Plan Hemoglobin check showed hemoglobin of 10.5, last hemoglobin was 12.5 in September 2016 , yet I think her hemoglobin will even drop further after hydrating her with IV fluids. Transfuse 2 units of packed RBC INR was reversed as mentioned above Follow-up INR in a.m. Protonix bolus and then drip Continue Cardizem drip for atrial fibrillation after correction of volume status GI consult appreciated, patient will go for upper endoscopy today, medically cleared for the procedure as benefits outweighs the risks ICU critical care consultation for admission to ICU unit SCD boots for DVT prophylaxis Hold blood pressure medications were now, but when volume status is corrected and blood pressure control can start her Toprol XL in order to wean her off Cardizem drip Hold aspirin, platelet count is 219, no need for platelets transfusion at this point but if patient continued to bleed aggressively or required more than 4 units of packed RBC, will have low suspicion transfuse platelets as well Advanced Directives Existing Living Will: Yes Existing Power of Presentation Manager: Yes VTE Prophylaxis VTE Risk Assessment Done? Y/N: Yes Risk Level: Moderate Given or contraindicated: T.E.D. Stockings, Contraindicated
[2017-05-19] MEDS ORDERED: ERYTHROMYCIN IV 250 MG in SODIUM CHLORIDE 0.9% 250ML 250 ML IV ONE (13:00)
--- NOTE | 2017-05-19 13:03 | Endo History and Physical ---
History & Physical Date of Service: May 19, 2017. Chief Complaint: GIB Referring Physician: History of Present Illness 89 yo female on anticoag for a fib, h/o dementia, prior colostomy transferred to ER This am for coffee grounds emesis and melena. On presentation, she was hypotensive with systolic BP 70's, hgb at baseline 9-10, INR 3.6, BUN around 60. Pt received volume with recovery of BP, received vit K, K centra, and PPI gtt. Past Medical History Atrial Fibrillation, Arthritis, Gastrointestinal Disorder, Cancer, Hypertension , [place] Past Surgical History Hx Cardiac Surgery: No Hx Abdominal Surgery: Yes (hysterectomy) Hx Post-Op Nausea and Vomiting: No Hx Cancer Surgery: Yes (colostomy/ colon CA) Hx Thoracic Surgery: No Hx Orthopedic: No Hx Urinary Tract Surgery: No Social History Smoking Status: Never Smoker Hx Substance Use: No Hx Alcohol Use: No Allergies Coded Allergies: Iodine (Verified Allergy, Severe, UNKNOWN, 05/19/17) "I DON'T KNOW WHAT MY REACTION TO IODINE IS. A DOCTOR ONE TIME KNEW I WAS ALLERGIC" ...? Rabbit Epithelium (Verified Allergy, Severe, SCRATCHES?, 05/19/17) BEE STING (Verified Allergy, Unknown, UNSURE, 05/19/17) Sulfa Drugs (Verified Allergy, Unknown, ITCHING, 05/19/17) Shellfish (Verified Adverse Reaction, Unknown, VOMITING, 05/19/17) Current Medications Reported Home Medications Medications Dose Route/Sig Max Daily Dose Days Date Category Dose Instructions Bisac-Evac (Bisacodyl) 10 Mg Sup 1 Supp PEG UD PRN 05/19/17 Reported Fleet Enema (Sodium Phosphate/Biphosphate) Tammy 1 Ea [place] UD PRN 05/19/17 Reported Milk Of Magnesia (Magnesium Hydroxide) 30 Ml Susp 30 Ml PO UD PRN 05/19/17 Reported Vitamin D3 (Cholecalciferol) 2,000 Unit Cap 1 Cap PO DAILY 05/19/17 Reported Warfarin Sodium 4 Mg Tab 1 Tab PO [id number] 05/19/17 Reported TUES<THURS<SAT<SUN @ 2029 Warfarin Sodium 3 Mg Tab 1 Tab PO MWF 90 05/19/17 Reported give at 2030 Voltaren 1% Top Gel (Diclofenac Sodium (Topical)) 1 % Gel 4 Gm TOP QID 05/19/17 Reported to left knee Voltaren 1% Top Gel (Diclofenac Sodium (Topical)) 1 % Gel 2 Gm TOP QID 05/19/17 Reported to left shoulder Levothyroxine Sodium 25 Mcg Tab 1 Tab PO DAILY 90 05/19/17 Reported Digoxin 0.125 Mg Tab 0.125 Mg PO DAILY@16 05/09/16 Rx Metoprolol Succinate ER (Metoprolol Succinate) 50 Mg Tabcr 50 Mg PO BID 05/09/16 Rx Tylenol (Acetaminophen) 325 Mg Tab 650 Mg PO Q6 PRN 05/01/16 Reported Epipen (Epinephrine) 0.3 Mg/0.3 Ml Inj 0.3 Mg IM UD PRN 05/01/16 Reported Aspirin Low Dose (Aspirin) 81 Mg Tab 81 Mg PO DAILY 05/01/16 Reported Cardizem (Diltiazem Hcl) 30 Mg Tab 30 Mg PO BID 04/06/15 Reported Vital Signs Weight (Kilograms): 83.50 Height (Feet): 5 Height (Inches): 5 Date Time Temp Pulse Resp B/P (MAP) Pulse Ox O2 Delivery O2 Flow Rate FiO2 05/19/17 12:11 78 20 111/55 97 Nasal Cannula 2.0 05/19/17 12:05 89 22 101/55 97 Nasal Cannula 2.0 05/19/17 12:02 101/55 05/19/17 11:54 89 19 97 05/19/17 11:47 98/56 05/19/17 11:47 76 18 98/56 98 Nasal Cannula 2.0 05/19/17 11:43 78 22 83/47 96 Nasal Cannula 2.0 05/19/17 11:40 83/47 05/19/17 11:39 72 19 05/19/17 11:37 78 22 92/53 98 Nasal Cannula 2.0 05/19/17 11:32 92/53 05/19/17 11:30 91/48 05/19/17 11:30 90 20 91/48 94 Nasal Cannula 2.0 05/19/17 11:29 95 Nasal Cannula 2.0 05/19/17 11:27 78/45 05/19/17 11:25 73/51 05/19/17 11:25 90 20 84/54 91 Room Air 73/51 05/19/17 11:24 89 21 85/54 74 05/19/17 11:16 100 20 99/57 94 Room Air 05/19/17 11:15 99/57 05/19/17 11:09 88 23 94 05/19/17 10:54 128 05/19/17 10:54 92 24 97 05/19/17 10:53 36.5 117 18 120/77 96 Room Air 05/19/17 10:42 120/77 Physical Exam General Appearance: WD/WN, no apparent distress Respiratory/Chest: Respiratory effort: no dyspnea Auscultation: CTA except as noted Abdomen: Inspection & Palpation: soft Assessment and Plan UGIB - Agree with K centra, PPI gtt, vit K, volume. X fusion for goal hgb 7. Urgent EGD today in OR.
[2017-05-19] MEDS ORDERED: ETOMIDATE 2 MG/ML 20 ML VIAL IV ONE (14:06)
[2017-05-19] MEDS ORDERED: PHENYLEPHRINE HCL INJ 10 MG/ML VIAL ONE (14:06)
[2017-05-19] MEDS ORDERED: SUCCINYLCHOLINE 100MG/5ML SYR IV ONE (14:07)
[2017-05-19 15:04] LABS: INR 1.2 (0.9-1.1); PROTHROMBIN TIME (PATIENT) 12.3 SECONDS (9.0-12.0)
--- NOTE | 2017-05-19 15:29 | Critical Care Consultation ---
Critical Care Consultation Date of Consultation: May 19, 2017. Attending Physician: Mary Murcia MD Reason for Consultation: GI Bleed/Hypotension. Close ICU monitoring. History of Present Illness 89 years with past medical history of colon cancer status post resection and colostomy, chronic atrial fibrillation on Coumadin, hypertension, CAD and previous GI bleed in April 2016. Patient is a resident at [facility]. Was in her regular state of health until this morning. Recent does have some element of dementia but she was able to give me an accurate history of present illness, she was oriented to time place and person. She said that she woke up and found that her colostomy bag is full of black color feces. After that she said that she got sick in her stomach and she threw up. She was very embarrassed that she didn't do up in the pocket.. She said she used a towel then she called the nurse and apologized to her about the miss . After that she follow-up again 3 times. As per nursing staff she did have coffee-ground emesis. She was sent to the hospital for further evaluation and management. Her blood pressure was low, she had a tachycardia more than 120. Received multiple fluid boluses. INR was 3.6 and she received vitamin K and k centra. The patient also received 2 L of IV fluids and 2 units of PRBC. The patient was evaluated by the project manager interior design and is scheduled for EGD. Still having black tarry sttol from the colostomy bag. The patient is alert, awake and responds appropriately and denies any distress at this time.Also denies any abdominal pain or chest pain or N/Vomitting. Prior to arrval to ER she vomited twice, coffee ground materials. Past Medical/Surgical History Atrial Fibrillation Altered MS. CA of Colon. S/Post Colostomy. Dementia. Chronic Heart Disease. TIA. Influenza A. Family History Diabetes mellitus FHx: heart disease Social History Smoking Status: Never Smoker Alcohol Use: none Drug Use: none Marital Status: Housing Status: lives alone Occupation Status: retired Allergies Coded Allergies: Iodine (Verified Allergy, Severe, UNKNOWN, 05/19/17) "I DON'T KNOW WHAT MY REACTION TO IODINE IS. A DOCTOR ONE TIME KNEW I WAS ALLERGIC" ...? Rabbit Epithelium (Verified Allergy, Severe, SCRATCHES?, 05/19/17) BEE STING (Verified Allergy, Unknown, UNSURE, 05/19/17) Sulfa Drugs (Verified Allergy, Unknown, ITCHING, 05/19/17) Shellfish (Verified Adverse Reaction, Unknown, VOMITING, 05/19/17) Home Medications Scheduled Aspirin (Aspirin Low Dose), 81 MG PO DAILY Cholecalciferol (Vitamin D3), 1 CAP PO DAILY Diclofenac Sodium (Topical) (Voltaren 1% Top Gel), 2 GM TOP QID Diclofenac Sodium (Topical) (Voltaren 1% Top Gel), 4 GM TOP QID Digoxin (Digoxin), 0.125 MG PO DAILY@16 Diltiazem Hcl (Cardizem), 30 MG PO BID Levothyroxine Sodium (Levothyroxine Sodium), 1 TAB PO DAILY Metoprolol Succinate (Metoprolol Succinate ER), 50 MG PO BID Warfarin Sodium (Warfarin Sodium), 1 TAB PO MWF Warfarin Sodium (Warfarin Sodium), 1 TAB PO [id number] Scheduled PRN Acetaminophen (Tylenol), 650 MG PO Q6 PRN for Pain or Fever Bisacodyl (Bisac-Evac), 1 SUPP PEG UD PRN for IF NO EFFECT FROM MOM Epinephrine (Epipen), 0.3 MG IM UD PRN for ALLERGIC REACTION Magnesium Hydroxide (Milk Of Magnesia), 30 ML PO UD PRN for NO BM X 3 DAYS Sodium Phosphate/Biphosphate (Fleet Enema), 1 EA DE UD PRN for ON DAY 4 IF NO BM AFTER SUPPOS Current Inpatient Medications Current Inpatient Medications Medications (Trade) Dose Ordered Sig/Klaus Route Start Time Stop Time Status Last Admin Dose Admin Diltiazem HCl 125 mg/Dextrose 125 ml @ 0 mls/hr Q0M PRN IV 05/19/17 11:00 06/18/17 10:59 05/19/17 11:20 5 MLS/HR Pantoprazole Sodium 40 mg/ Dextrose 100 ml @ 20 mls/hr Q5H IV 05/19/17 11:30 05/19/17 16:29 05/19/17 11:36 20 MLS/HR Acetaminophen (Tylenol Tab) 650 mg Q6 PRN PO 05/19/17 12:30 06/18/17 12:29 Diclofenac Sodium (Voltaren 1% Top Gel) 1 appln QID PRN EXT 05/19/17 12:30 06/18/17 12:29 Digoxin (Lanoxin Tab) 0.125 mg DAILY@16 PO 05/19/17 16:00 06/18/17 15:59 Levothyroxine Sodium (Synthroid Tab) 25 mcg DAILYBB PO 05/20/17 06:00 06/19/17 05:59 Magnesium Hydroxide (Milk Of Magnesia Susp) 30 ml UD PRN PO 05/19/17 12:30 06/18/17 12:29 Potassium Chloride/Dextrose/ Sod Cl 1,000 ml @ 50 mls/hr Q20H IV 05/19/17 14:00 06/18/17 13:59 Miscellaneous Information (Icu Protocol For Hyperglycemia) 1 ea PRN PRN N/A 05/19/17 12:30 05/21/17 12:29 Pantoprazole Sodium 40 mg/ Dextrose 100 ml @ 20 mls/hr Q5H IV 05/19/17 16:30 06/18/17 16:29 Review of Systems Constitutional: + weakness, + fatigue Abdomen: + vomiting, + GI bleeding Neurologic: + weakness Endocrine: + fatigue Hematologic / Lymphatic: + clotting problems Physical Exam Date Time Temp Pulse Resp B/P (MAP) Pulse Ox O2 Delivery O2 Flow Rate FiO2 05/19/17 14:13 36.8 89 20 107/80 99 2.0 05/19/17 13:30 36.5 88 16 104/60 99 2.0 05/19/17 12:46 88 05/19/17 12:45 85 25 102/67 94 05/19/17 12:37 83 19 99 05/19/17 12:35 96/59 05/19/17 12:34 36.5 86 20 96/59 99 2.0 05/19/17 12:32 90/66 05/19/17 12:23 97 Nasal Cannula 2.0 05/19/17 12:22 80 18 97 05/19/17 12:17 36.5 86 18 132/58 97 Nasal Cannula 2.0 05/19/17 12:12 111/55 05/19/17 12:11 78 20 111/55 97 Nasal Cannula 2.0 05/19/17 12:07 84 23 99 05/19/17 12:05 89 22 101/55 97 Nasal Cannula 2.0 05/19/17 12:02 101/55 05/19/17 11:54 89 19 97 05/19/17 11:47 98/56 05/19/17 11:47 76 18 98/56 98 Nasal Cannula 2.0 05/19/17 11:43 78 22 83/47 96 Nasal Cannula 2.0 05/19/17 11:40 83/47 05/19/17 11:39 72 19 05/19/17 11:37 78 22 92/53 98 Nasal Cannula 2.0 05/19/17 11:32 92/53 05/19/17 11:30 91/48 05/19/17 11:30 90 20 91/48 94 Nasal Cannula 2.0 05/19/17 11:29 95 Nasal Cannula 2.0 05/19/17 11:27 78/45 05/19/17 11:25 73/51 05/19/17 11:25 90 20 84/54 91 Room Air 73/51 05/19/17 11:24 89 21 85/54 74 05/19/17 11:16 100 20 99/57 94 Room Air 05/19/17 11:15 99/57 05/19/17 11:09 88 23 94 05/19/17 10:54 128 05/19/17 10:54 92 24 97 05/19/17 10:53 36.5 117 18 120/77 96 Room Air 05/19/17 10:42 120/77 General Appearance: well-appearing, no apparent distress Head: normocephalic Eyes: PERRLA, conjunctivae normal ENT: normal ear exam Neck: normal range of motion, no tenderness, trachea midline, no stridor, supple, no lymphadenopathy Respiratory: breath sounds normal, clear to auscultation, clear to percussion, no respiratory distress Cardiovasular: no JVD, irregular rate Abdomen: non tender, normal bowel sounds, no rebound, no masses, no guarding Genitourinary - Female: other (Not examined.) Back: normal range of motion Upper Extremities: no edema, normal ROM Lower Extremities: no edema, normal ROM Pulses: brachial (R) (2+), brachial (L) (2+), radial (R) (2+), radial (L) (2+) , dorsalis pedis (R) (2+), dorsalis pedis (L) (2+) Neuro: alert, oriented x 3, normal motor exam, normal sensation Psychiatric: normal affect, no suicidal ideation Laboratory Results Last 24 Hours Test 05/19/17 10:56 05/19/17 11:00 05/19/17 11:10 05/19/17 12:25 White Blood Count 7.54 K/uL Red Blood Count 3.54 M/uL Hemoglobin 10.5 g/dL Hematocrit 31.9 % Mean Corpuscular Volume 90.1 fL Mean Corpuscular Hemoglobin 29.7 pg Mean Corpuscular Hemoglobin Concent 32.9 g/dl Platelet Count 219 K/uL Mean Platelet Volume 10.5 fL Neutrophils (%) (Auto) 78.7 % Lymphocytes (%) (Auto) 15.1 % Monocytes (%) (Auto) 5.4 % Eosinophils (%) (Auto) 0.1 % Basophils (%) (Auto) 0.3 % Neutrophils # (Auto) 5.93 K/uL Lymphocytes # (Auto) 1.14 K/uL Monocytes # (Auto) 0.41 K/uL Eosinophils # (Auto) 0.01 K/uL Basophils # (Auto) 0.02 K/uL RDW Standard Deviation 45.8 fL RDW Coefficient of Variation 13.8 % Immature Granulocyte % (Auto) 0.4 % Immature Granulocyte # (Auto) 0.03 K/uL Prothrombin Time 31.1 SECONDS Prothromb Time International Ratio 3.0 Activated Partial Thromboplast Time 34.9 SECONDS Partial Thromboplastin Ratio 1.3 Sodium Level 144 mmol/L Potassium Level 4.7 mmol/L Chloride Level 110 mmol/L Carbon Dioxide Level 26 mmol/L Anion Gap 8.0 mmol/L 16.0 mmol/L Blood Urea Nitrogen 67 mg/dl Creatinine 1.02 mg/dl Est Creatinine Clear Calc Drug Dose 39.9 ml/min Estimated GFR () 56.5 Estimated GFR (Non- 48.7 BUN/Creatinine Ratio 65.2 Random Glucose 109 mg/dl Calcium Level 8.1 mg/dl Magnesium Level 1.8 mg/dl Total Bilirubin 0.4 mg/dl Aspartate Amino Transf (AST/SGOT) 10 U/L Alanine Aminotransferase (ALT/SGPT) 16 U/L Alkaline Phosphatase 57 U/L Troponin I < 0.015 ng/ml Total Protein 6.1 gm/dl Albumin 3.1 gm/dl Globulin 3.0 gm/dl Albumin/Globulin Ratio 1.0 Lipase 93 U/L Digoxin Level 0.6 ng/ml Bedside Prothrombin Time INR 3.6 Bedside Hemoglobin 9.5 g/dl Bedside Hematocrit 28 % Bedside Sodium 144 mEq/L Bedside Potassium 4.7 mEq/L Bedside Chloride 107 mEq/L Bedside Total CO2 27 mEq/l Bedside Blood Urea Nitrogen 59 mg/dl Bedside Creatinine 1.1 mg/dl Bedside Glucose (other) 111 mg/dl Bedside Ionized Calcium (Artie) 1.18 mmol/l Test 05/19/17 14:19 Diagnostic Results FINDINGS: Atherosclerosis of the aortic arch. Cardiac silhouette top normal in size. Round 11 mm nodule in the left upper lobe, which in retrospect was present on the prior exam and is essentially unchanged in size. This has been stable for multiple years and was better demonstrated on chest CT from 12/12/2014. No other focal infiltrate. No large effusion or pneumothorax. Degenerative changes of the thoracic spine. Upper abdomen normal. IMPRESSION: 1. No acute cardiopulmonary disease. Assessment & Plan 89 years with past medical history of colon cancer status post resection and colostomy, chronic atrial fibrillation on Coumadin, hypertension, CAD and previous GI bleed in April 2016. Presented with upper GI bleed 1. GI Bleed. The patient was evaluated by the GI and is scheduled for the Endoscopy now and will be treated accordingly. 2. Anemia. The patient will be transfused with two units of PRBC and will monitor closely the H/H and treat accordingly. 3. Coagulation abnormalities secondary to Coumadin. the patient received Vit K and also K centra and will monitor the PT/INR. 4. Atrial Fibrillation. Did well with cardizem drip and currently, she is off the IV cardizem and she is sinus sherita. Will monitor. 5. CAD. Seem to be stable. Have D/W the family and answered all the questions. D/W other care provider. the patient has peripheral line and was given fluid bolus and had improved. Spent greater than 55 minutes of critical care time. DR. Alicia [facility].
[2017-05-19] MEDS ORDERED: ESMOLOL HCL 10 MG/ML 10 ML VIAL ONE (16:00)
[2017-05-19] MEDS ORDERED: EpHEDrine SULFATE INJ 50 MG/ML AMP IV PRN (16:15)
[2017-05-19] MEDS ORDERED: PHENYLEPHRINE 100MCG/ML 5ML SYR IV PRN (16:15)
[2017-05-19] MEDS ORDERED: ONDANSETRON INJ 2 MG/ML 2 ML VIAL IV PRN (16:15)
[2017-05-19] MEDS ORDERED: FENTANYL CITRATE INJ 50 MCG/1 ML 2 ML VIAL IV PRN (16:15)
[2017-05-19] MEDS ORDERED: ATROPINE SULFATE 0.1 MG/ML 5ML SYR IV PRN (16:15)
[2017-05-19] MEDS: D5NSS + 20MEQ KCL 1,000 ML IV SCH (16:26)
--- NOTE | 2017-05-19 16:46 | Anesthesiology Progress Note ---
Anesthesia Post Op Note Date & Time May 19, 2017 at 16:45 Vital Signs Pain Intensity: 0 Vital Signs Past 12 Hours Date Time Temp Pulse Resp B/P (MAP) Pulse Ox O2 Delivery O2 Flow Rate FiO2 05/19/17 16:10 105 20 117/83 (78) 99 Oxymask 4 05/19/17 16:00 77 24 101/68 (78) 98 Oxymask 4 05/19/17 15:50 36.9 127 19 104/78 99 Oxymask 4 05/19/17 14:13 36.8 89 20 107/80 99 2.0 05/19/17 13:30 36.5 88 16 104/60 99 2.0 05/19/17 12:46 88 05/19/17 12:45 85 25 102/67 94 05/19/17 12:37 83 19 99 05/19/17 12:35 96/59 05/19/17 12:34 36.5 86 20 96/59 99 2.0 05/19/17 12:32 90/66 05/19/17 12:23 97 Nasal Cannula 2.0 05/19/17 12:22 80 18 97 05/19/17 12:17 36.5 86 18 132/58 97 Nasal Cannula 2.0 05/19/17 12:12 111/55 05/19/17 12:11 78 20 111/55 97 Nasal Cannula 2.0 05/19/17 12:07 84 23 99 05/19/17 12:05 89 22 101/55 97 Nasal Cannula 2.0 05/19/17 12:02 101/55 05/19/17 11:54 89 19 97 05/19/17 11:47 98/56 05/19/17 11:47 76 18 98/56 98 Nasal Cannula 2.0 05/19/17 11:43 78 22 83/47 96 Nasal Cannula 2.0 05/19/17 11:40 83/47 05/19/17 11:39 72 19 05/19/17 11:37 78 22 92/53 98 Nasal Cannula 2.0 05/19/17 11:32 92/53 05/19/17 11:30 91/48 05/19/17 11:30 90 20 91/48 94 Nasal Cannula 2.0 05/19/17 11:29 95 Nasal Cannula 2.0 05/19/17 11:27 78/45 12/25/17 11:25 73/51 05/19/17 11:25 90 20 84/54 91 Room Air 73/51 05/19/17 11:24 89 21 85/54 74 05/19/17 11:16 100 20 99/57 94 Room Air 05/19/17 11:15 99/57 05/19/17 11:09 88 23 94 05/19/17 10:54 128 05/19/17 10:54 92 24 97 05/19/17 10:53 36.5 117 18 120/77 96 Room Air 05/19/17 10:42 120/77 Notes Mental Status: alert / awake / arousable, participated in evaluation Pt Amnestic to Procedure: Yes Nausea / Vomiting: adequately controlled Pain: adequately controlled Airway Patency, RR, SpO2: stable & adequate BP & HR: stable & adequate Hydration State: stable & adequate Anesthetic Complications: no major complications apparent
[2017-05-19] MEDS: PANTOprazole INJ 40 MG in DEXTROSE 5% 100ML IV SCH ×2 (17:15→21:11)
[2017-05-19] MEDS: DIGOXIN 0.125 MG TAB PO SCH (17:16)
[2017-05-19 20:35] LABS: HEMATOCRIT 29.3 % (37-47)
[2017-05-19] MEDS ORDERED: METOPROLOL SUCC 50MG EXT REL TAB PO SCH (21:00)
[2017-05-20] VITALS (22 sets, daily range): BP systolic 79–114; BP diastolic 45–78; PULSE 71–104; TEMP 36.4–36.8; O2SAT 90–100
[2017-05-20 00:33] LABS: HEMATOCRIT 30.3 % (37-47)
[2017-05-20] MEDS: PANTOprazole INJ 40 MG in DEXTROSE 5% 100ML IV SCH ×2 (02:18→08:03)
[2017-05-20 05:46] LABS: BASO % 0.2 %; BASO ABS # 0.01 K/uL (0-0.2); EOS % 1.6 %; HEMATOCRIT 27.7 % (37-47); IG% 0.3 %; LYMPH % 35.2 %; LYMPH ABS # 2.23 K/uL (1.2-3.4); MEAN CELL VOLUME 89.6 fL (80-100); MEAN CORPUSCULAR HEMOGLOBIN 29.8 pg (25-34); MEAN PLATELET VOLUME 10.5 fL (7.4-10.4); MONO % 8.5 %; NEUT % 54.2 %; PLATELET COUNT 156 K/uL (130-400); RED BLOOD COUNT 3.09 M/uL (4.2-5.4); WHITE BLOOD COUNT 6.33 K/uL (4.8-10.8)
[2017-05-20 06:03] LABS: COMPLETE YES; MEAN CORPUSCULAR HGB CONC 33.2 g/dl (32-36)
[2017-05-20 06:35] LABS: BUN/CREATININE RATIO 43.7 (10-20); CALCIUM 7.6 mg/dl (8.5-10.1); CREATININE 0.94 mg/dl (0.60-1.20); MAGNESIUM 1.7 mg/dl (1.8-2.4); PHOSPHORUS 2.4 mg/dl (2.5-4.9); POTASSIUM 3.9 mmol/L (3.5-5.1)
[2017-05-20] MEDS: LEVOTHYROXINE 25 MCG TAB PO SCH (06:43)
--- NOTE | 2017-05-20 10:38 | Gastroenterology Progress Note ---
Progress Note Date of Service: May 20, 2017 Subjective Pt evaluation today including: conversation w/ patient, physical exam, chart review, lab review, review of inpatient medication list Pt denies any abd pain, n/v. No BMs recorded per ostomy. H/H 9-10. Did receive 1U PRBC yesterday Review of Systems Constitutional: No fever, No chills Respiratory: No cough, No shortness of breath Cardiac: No chest pain Abdomen: No pain, No nausea, No vomiting Medications Current Inpatient Medications Medications (Trade) Dose Ordered Sig/Klaus Route Start Time Stop Time Status Last Admin Dose Admin Diltiazem HCl 125 mg/Dextrose 125 ml @ 0 mls/hr Q0M PRN IV 05/19/17 11:00 06/18/17 10:59 05/19/17 11:20 5 MLS/HR Acetaminophen (Tylenol Tab) 650 mg Q6 PRN PO 05/19/17 12:30 06/18/17 12:29 Diclofenac Sodium (Voltaren 1% Top Gel) 1 appln QID PRN EXT 05/19/17 12:30 06/18/17 12:29 Digoxin (Lanoxin Tab) 0.125 mg DAILY@16 PO 05/19/17 16:00 06/18/17 15:59 05/19/17 17:16 0.125 MG Levothyroxine Sodium (Synthroid Tab) 25 mcg DAILYBB PO 05/20/17 06:00 06/19/17 05:59 05/20/17 06:43 25 MCG Magnesium Hydroxide (Milk Of Magnesia Susp) 30 ml UD PRN PO 05/19/17 12:30 06/18/17 12:29 Potassium Chloride/Dextrose/ Sod Cl 1,000 ml @ 50 mls/hr Q20H IV 05/19/17 14:00 06/18/17 13:59 05/19/17 16:26 50 MLS/HR Miscellaneous Information (Icu Protocol For Hyperglycemia) 1 ea PRN PRN N/A 05/19/17 12:30 05/21/17 12:29 Pantoprazole Sodium 40 mg/ Dextrose 100 ml @ 20 mls/hr Q5H IV 05/19/17 16:30 06/18/17 16:29 05/20/17 08:03 20 MLS/HR Objective Vital Signs Date Time Temp Pulse Resp B/P (MAP) Pulse Ox O2 Delivery O2 Flow Rate FiO2 05/20/17 09:02 89 16 109/55 (73) 100 Oxymask 4.0 05/20/17 08:02 36.4 88 16 99/70 (80) 99 Oxymask 4.0 05/20/17 08:00 Oxymask 4.0 05/20/17 07:01 71 12 103/70 (81) 99 Oxymask 4.0 05/20/17 05:02 88 13 95/60 (72) 100 Oxymask 2.0 05/20/17 04:02 36.8 91 15 95/63 (74) 100 Oxymask 2.0 05/20/17 04:00 100 Oxymask 2.0 05/20/17 03:02 100 18 107/59 (75) 99 Oxymask 2.0 05/20/17 02:02 80 22 112/57 (75) 100 Room Air 05/20/17 01:02 93 17 106/63 (77) 98 Room Air 05/20/17 00:02 36.6 104 13 114/60 (78) 90 Room Air 05/19/17 23:59 98 Room Air 05/19/17 22:00 37.0 94 14 104/55 (71) 98 Room Air 05/19/17 20:00 37.0 90 18 105/57 (73) 95 Room Air 05/19/17 20:00 95 Room Air 05/19/17 18:00 36.9 86 16 106/45 (65) 95 Room Air 05/19/17 17:16 103 05/19/17 16:15 36.8 113 22 119/64 (82) 99 Oxymask 05/19/17 16:15 99 Oxymask 4.0 05/19/17 16:10 105 20 117/83 (78) 99 Oxymask 4 05/19/17 16:00 77 24 101/68 (78) 98 Oxymask 4 05/19/17 15:50 36.9 127 19 104/78 99 Oxymask 4 05/19/17 14:13 36.8 89 20 107/80 99 2.0 05/19/17 13:30 36.5 88 16 104/60 99 2.0 05/19/17 12:46 88 05/19/17 12:45 85 25 102/67 94 05/19/17 12:37 83 19 99 05/19/17 12:35 96/59 05/19/17 12:34 36.5 86 20 96/59 99 2.0 05/19/17 12:32 90/66 05/19/17 12:23 97 Nasal Cannula 2.0 05/19/17 12:22 80 18 97 05/19/17 12:17 36.5 86 18 132/58 97 Nasal Cannula 2.0 05/19/17 12:12 111/55 05/19/17 12:11 78 20 111/55 97 Nasal Cannula 2.0 05/19/17 12:07 84 23 99 05/19/17 12:05 89 22 101/55 97 Nasal Cannula 2.0 05/19/17 12:02 101/55 05/19/17 11:54 89 19 97 05/19/17 11:47 98/56 05/19/17 11:47 76 18 98/56 98 Nasal Cannula 2.0 05/19/17 11:43 78 22 83/47 96 Nasal Cannula 2.0 05/19/17 11:40 83/47 05/19/17 11:39 72 19 05/19/17 11:37 78 22 92/53 98 Nasal Cannula 2.0 05/19/17 11:32 92/53 05/19/17 11:30 91/48 05/19/17 11:30 90 20 91/48 94 Nasal Cannula 2.0 05/19/17 11:29 95 Nasal Cannula 2.0 05/19/17 11:27 78/45 05/19/17 11:25 73/51 05/19/17 11:25 90 20 84/54 91 Room Air 73/51 05/19/17 11:24 89 21 85/54 74 05/19/17 11:16 100 20 99/57 94 Room Air 05/19/17 11:15 99/57 05/19/17 11:09 88 23 94 05/19/17 10:54 128 05/19/17 10:54 92 24 97 05/19/17 10:53 36.5 117 18 120/77 96 Room Air 05/19/17 10:42 120/77 Physical Exam General Appearance: WD/WN, no apparent distress Eyes: normal inspection, PERRL, EOMI Neck: supple, no JVD, trachea midline Respiratory/Chest: no respiratory distress, no accessory muscle use, + decreased breath sounds Cardiovascular: regular rate, rhythm, no gallop, no murmur Abdomen: + abnormal bowel sounds (hypoactive), + pertinent finding (LLQ ostomy pink, moist, air in bag, residue of black colored stool around ostomy) Extremities: normal inspection, no pedal edema, no calf tenderness Neurologic/Psych: alert, + disoriented (oriented to self only) Skin: normal color, no jaundice, no rash Laboratory Results Last 24 Hours Test 05/19/17 10:56 05/19/17 11:00 05/19/17 11:10 05/19/17 14:50 White Blood Count 7.54 K/uL Red Blood Count 3.54 M/uL Hemoglobin 10.5 g/dL Hematocrit 31.9 % Mean Corpuscular Volume 90.1 fL Mean Corpuscular Hemoglobin 29.7 pg Mean Corpuscular Hemoglobin Concent 32.9 g/dl Platelet Count 219 K/uL Mean Platelet Volume 10.5 fL Neutrophils (%) (Auto) 78.7 % Lymphocytes (%) (Auto) 15.1 % Monocytes (%) (Auto) 5.4 % Eosinophils (%) (Auto) 0.1 % Basophils (%) (Auto) 0.3 % Neutrophils # (Auto) 5.93 K/uL Lymphocytes # (Auto) 1.14 K/uL Monocytes # (Auto) 0.41 K/uL Eosinophils # (Auto) 0.01 K/uL Basophils # (Auto) 0.02 K/uL RDW Standard Deviation 45.8 fL RDW Coefficient of Variation 13.8 % Immature Granulocyte % (Auto) 0.4 % Immature Granulocyte # (Auto) 0.03 K/uL Prothrombin Time 31.1 SECONDS 12.3 SECONDS Prothromb Time International Ratio 3.0 1.2 Activated Partial Thromboplast Time 34.9 SECONDS Partial Thromboplastin Ratio 1.3 Sodium Level 144 mmol/L Potassium Level 4.7 mmol/L Chloride Level 110 mmol/L Carbon Dioxide Level 26 mmol/L Anion Gap 8.0 mmol/L 16.0 mmol/L Blood Urea Nitrogen 67 mg/dl Creatinine 1.02 mg/dl Est Creatinine Clear Calc Drug Dose 39.9 ml/min Estimated GFR () 56.5 Estimated GFR (Non- 48.7 BUN/Creatinine Ratio 65.2 Random Glucose 109 mg/dl Calcium Level 8.1 mg/dl Magnesium Level 1.8 mg/dl Total Bilirubin 0.4 mg/dl Aspartate Amino Transf (AST/SGOT) 10 U/L Alanine Aminotransferase (ALT/SGPT) 16 U/L Alkaline Phosphatase 57 U/L Troponin I < 0.015 ng/ml Total Protein 6.1 gm/dl Albumin 3.1 gm/dl Globulin 3.0 gm/dl Albumin/Globulin Ratio 1.0 Lipase 93 U/L Digoxin Level 0.6 ng/ml Bedside Prothrombin Time INR 3.6 Bedside Hemoglobin 9.5 g/dl Bedside Hematocrit 28 % Bedside Sodium 144 mEq/L Bedside Potassium 4.7 mEq/L Bedside Chloride 107 mEq/L Bedside Total CO2 27 mEq/l Bedside Blood Urea Nitrogen 59 mg/dl Bedside Creatinine 1.1 mg/dl Bedside Glucose (other) 111 mg/dl Bedside Ionized Calcium (Artie) 1.18 mmol/l Test 05/19/17 18:03 05/19/17 20:27 05/20/17 00:07 05/20/17 00:13 Bedside Glucose 97 mg/dl 153 mg/dl Hemoglobin 9.9 g/dL 10.1 g/dL Hematocrit 29.3 % 30.3 % Test 05/20/17 05:32 05/20/17 05:39 White Blood Count 6.33 K/uL Red Blood Count 3.09 M/uL Hemoglobin 9.2 g/dL Hematocrit 27.7 % Mean Corpuscular Volume 89.6 fL Mean Corpuscular Hemoglobin 29.8 pg Mean Corpuscular Hemoglobin Concent 33.2 g/dl Platelet Count 156 K/uL Mean Platelet Volume 10.5 fL Neutrophils (%) (Auto) 54.2 % Lymphocytes (%) (Auto) 35.2 % Monocytes (%) (Auto) 8.5 % Eosinophils (%) (Auto) 1.6 % Basophils (%) (Auto) 0.2 % Neutrophils # (Auto) 3.43 K/uL Lymphocytes # (Auto) 2.23 K/uL Monocytes # (Auto) 0.54 K/uL Eosinophils # (Auto) 0.10 K/uL Basophils # (Auto) 0.01 K/uL RDW Standard Deviation 48.0 fL RDW Coefficient of Variation 14.7 % Immature Granulocyte % (Auto) 0.3 % Immature Granulocyte # (Auto) 0.02 K/uL Sodium Level 144 mmol/L Potassium Level 3.9 mmol/L Chloride Level 114 mmol/L Carbon Dioxide Level 26 mmol/L Anion Gap 4.0 mmol/L Blood Urea Nitrogen 41 mg/dl Creatinine 0.94 mg/dl Est Creatinine Clear Calc Drug Dose 43.5 ml/min Estimated GFR () 62.3 Estimated GFR (Non- 53.8 BUN/Creatinine Ratio 43.7 Random Glucose 94 mg/dl Calcium Level 7.6 mg/dl Phosphorus Level 2.4 mg/dl Magnesium Level 1.7 mg/dl Total Bilirubin 0.4 mg/dl Direct Bilirubin 0.1 mg/dl Aspartate Amino Transf (AST/SGOT) 11 U/L Alanine Aminotransferase (ALT/SGPT) 13 U/L Alkaline Phosphatase 45 U/L Total Protein 4.9 gm/dl Albumin 2.6 gm/dl Bedside Glucose 97 mg/dl Assessment and Plan Pt is a 89 y/o female, admitted for coffee ground emesis, ? red stools, anemia, elevated BUN suspected for UGI bleeding. Hx of Coumadin use for Afib, ASA, INR on admission was 3.6. She had been given K centra, Vit K, 1U PRBC transfusion. H /H stable. EGD yesterday by Dr. Almaraz w/o source of UGI bleed. ? diverticular bleed though would not pursue lower endoscopy at this time given H/ H stabilizing, BUN decreasing. Last colonoscopy in 2013 - Monitor H/H and transfuse prn - Defer further endoscopy workup - CL diet - DC PPI gtt, Protonix 40mg BID ATTESTATION: I have performed a history and physical examination of this patient and reviewed the electronic record. Specifically, on physical examination there is no abdominal tenderness. I have discussed the case with JACK Bonilla. The above note reflects my findings, conclusions, and recommendations. Cody Youngblood MD
[2017-05-20] MEDS: D5NSS + 20MEQ KCL 1,000 ML IV SCH (11:40)
--- NOTE | 2017-05-20 12:39 | Progress Note ---
Subjective Date of Service: May 20, 2017. Subjective Pt evaluation today including: conversation w/ patient Pt is feeling fatigued, but overall improved. No further episodes of emesis, although she states she is a bit dizzy when standing up. She has not eaten yet today. No nausea or abd pain. No chest pain or SOB. Pt was not having abd [employer] , just black stools, increased colostomy output, and coffee ground emesis. Pt denies fever, c/d, LE pain or swelling. Problem List Medical Problems: (1) Coagulopathy Status: Acute (2) GI bleed Status: Acute (3) Hypotension Status: Acute (4) Rapid atrial fibrillation Status: Acute (5) UTI (urinary tract infection) Status: Acute Review of Systems All Other Systems: Reviewed and Negative Objective Vital Signs Date Time Temp Pulse Resp B/P (MAP) Pulse Ox O2 Delivery O2 Flow Rate FiO2 05/20/17 12:00 Room Air 05/20/17 11:53 98 22 103/56 (72) 99 Room Air 05/20/17 11:02 91 13 103/53 (70) 94 Room Air 05/20/17 10:31 81 16 102/62 (75) 99 Room Air 05/20/17 10:01 76 13 97/67 (77) 05/20/17 09:02 89 16 109/55 (73) 100 Oxymask 4.0 05/20/17 08:02 36.4 88 16 99/70 (80) 99 Oxymask 4.0 05/20/17 08:00 Oxymask 4.0 05/20/17 07:01 71 12 103/70 (81) 99 Oxymask 4.0 05/20/17 05:02 88 13 95/60 (72) 100 Oxymask 2.0 05/20/17 04:02 36.8 91 15 95/63 (74) 100 Oxymask 2.0 05/20/17 04:00 100 Oxymask 2.0 05/20/17 03:02 100 18 107/59 (75) 99 Oxymask 2.0 05/20/17 02:02 80 22 112/57 (75) 100 Room Air 05/20/17 01:02 93 17 106/63 (77) 98 Room Air 05/20/17 00:02 36.6 104 13 114/60 (78) 90 Room Air 05/19/17 23:59 98 Room Air 05/19/17 22:00 37.0 94 14 104/55 (71) 98 Room Air 05/19/17 20:00 37.0 90 18 105/57 (73) 95 Room Air 05/19/17 20:00 95 Room Air 05/19/17 18:00 36.9 86 16 106/45 (65) 95 Room Air 05/19/17 17:16 103 05/19/17 16:15 36.8 113 22 119/64 (82) 99 Oxymask 05/19/17 16:15 99 Oxymask 4.0 05/19/17 16:10 105 20 117/83 (78) 99 Oxymask 4 05/19/17 16:00 77 24 101/68 (78) 98 Oxymask 4 05/19/17 15:50 36.9 127 19 104/78 99 Oxymask 4 05/19/17 14:13 36.8 89 20 107/80 99 2.0 05/19/17 13:30 36.5 88 16 104/60 99 2.0 05/19/17 12:46 88 05/19/17 12:45 85 25 102/67 94 05/19/17 12:37 83 19 99 05/19/17 12:35 96/59 05/19/17 12:34 36.5 86 20 96/59 99 2.0 05/19/17 12:32 90/66 Physical Exam General Appearance: WD/WN, no apparent distress Eyes: normal inspection, EOMI, sclerae normal Respiratory/Chest: normal breath sounds, no respiratory distress Cardiovascular: regular rate, rhythm, no edema Abdomen: non tender, soft Extremities: non-tender, no pedal edema Neurologic/Psychiatric: alert, normal mood/affect Skin: normal color, warm/dry Laboratory Results Last 24 Hours Test 05/19/17 14:50 05/19/17 18:03 05/19/17 20:27 05/20/17 00:07 Prothrombin Time 12.3 SECONDS Prothromb Time International Ratio 1.2 Bedside Glucose 97 mg/dl Hemoglobin 9.9 g/dL 10.1 g/dL Hematocrit 29.3 % 30.3 % Test 05/20/17 00:13 05/20/17 05:32 05/20/17 05:39 05/20/17 12:25 Bedside Glucose 153 mg/dl 97 mg/dl White Blood Count 6.33 K/uL Red Blood Count 3.09 M/uL Hemoglobin 9.2 g/dL Hematocrit 27.7 % Mean Corpuscular Volume 89.6 fL Mean Corpuscular Hemoglobin 29.8 pg Mean Corpuscular Hemoglobin Concent 33.2 g/dl Platelet Count 156 K/uL Mean Platelet Volume 10.5 fL Neutrophils (%) (Auto) 54.2 % Lymphocytes (%) (Auto) 35.2 % Monocytes (%) (Auto) 8.5 % Eosinophils (%) (Auto) 1.6 % Basophils (%) (Auto) 0.2 % Neutrophils # (Auto) 3.43 K/uL Lymphocytes # (Auto) 2.23 K/uL Monocytes # (Auto) 0.54 K/uL Eosinophils # (Auto) 0.10 K/uL Basophils # (Auto) 0.01 K/uL RDW Standard Deviation 48.0 fL RDW Coefficient of Variation 14.7 % Immature Granulocyte % (Auto) 0.3 % Immature Granulocyte # (Auto) 0.02 K/uL Sodium Level 144 mmol/L Potassium Level 3.9 mmol/L Chloride Level 114 mmol/L Carbon Dioxide Level 26 mmol/L Anion Gap 4.0 mmol/L Blood Urea Nitrogen 41 mg/dl Creatinine 0.94 mg/dl Est Creatinine Clear Calc Drug Dose 43.5 ml/min Estimated GFR () 62.3 Estimated GFR (Non- 53.8 BUN/Creatinine Ratio 43.7 Random Glucose 94 mg/dl Calcium Level 7.6 mg/dl Phosphorus Level 2.4 mg/dl Magnesium Level 1.7 mg/dl Total Bilirubin 0.4 mg/dl Direct Bilirubin 0.1 mg/dl Aspartate Amino Transf (AST/SGOT) 11 U/L Alanine Aminotransferase (ALT/SGPT) 13 U/L Alkaline Phosphatase 45 U/L Total Protein 4.9 gm/dl Albumin 2.6 gm/dl Assessment and Plan 89 years with past medical history of colon cancer status post resection and colostomy, chronic atrial fibrillation on Coumadin, hypertension, CAD and previous GI bleed in April 2016. 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
[2017-05-20] MEDS ORDERED: EPINEPHRINE ADULT AUTO-INJECT 0.3 MG SYR IM PRN (12:45)
[2017-05-20 12:48] LABS: HEMATOCRIT 32.1 % (37-47)
[2017-05-20] MEDS ORDERED: METOPROLOL SUCC 50MG EXT REL TAB PO ONE (12:50)
[2017-05-20] MEDS ORDERED: DILTIAZEM HCL 30 MG TAB PO ONE (12:51)
[2017-05-20] MEDS: DICLOFENAC SOD 1% GEL 100 GM TUBE EXT SCH ×3 (13:00→19:55)
--- NOTE | 2017-05-20 13:51 | Critical Care Progress Note ---
Critical Care Progress Note Date of Service May 20, 2017. ICU Day ICU Day Number: [address] Cherry Subjective 89 year old female was admitted with GI bleed. The patient is no longer bleeding and H/H has been stable. hemodynamically also the patient has been stable. The patient had EGD yesterday and that did not reveal any active bleeding, but some evidence of gastritis. Able to tolerate PO intake. Sitting in the chair and answers appropriately. Objective Elderly female sitting in the chair and is not in any distress. HEENT: BERNARDO. Pupils equally reactive to light. Clear throat. NECK: Supple. No JVD. No Lymphadenopathy. CHEST: Bilateral air entry and clear lungs. HEART: S1/S2 heard. GI: Colostomy bag. No blood or tarry stool. Non tender. BS positive. NEURO: Alert, awake and responds appropriately. Moves all the extremities. EXTREMITIES: No edema. Non tender calf muscle. Current SOFA Score SOFA Score Response (Comments) Value PaO2/FiO2 (mmHg) < 400 1 SaO2 / FIO2 221 - 301 1 Platelets (x10) > 150 0 Bilirubin (mg/dL) < 1.2 0 Anurag Coma Score 15 0 Level of Hypotension No Hypotension 0 Creatinine (mg/dL) < 1.2 0 Total 2 Assessment & Plan 1. GI BLEED. The patient S/Post EGD. Gastritis and no evidence of an active bleeding. 2. ANEMIA. S/Post transfusion and EGD and the H/H has been stable. 3. ATRIAL FIBRILLATION: Was on Cardizem drip, but is off now. Rate controlled. The patient was also on Coumadin and will get clearance from the GI, before the patient was started back on the Coumadin. 4. CAD: has been stable and no active issues at this time. The patient is full code. Has peripheral lines. The patient has SCD for DVT prophylaxis and also on Protonix. Spent greater than 35 minutes of non critical care time. Consults & Procedures Consultants: GI: Ijeoma Pickett. Procedures: EGD: Ijeoma Pickett. Data Medications: Current Inpatient Medications Medications (Trade) Dose Ordered Sig/Klaus Route Start Time Stop Time Status Last Admin Dose Admin Diltiazem HCl 125 mg/Dextrose 125 ml @ 0 mls/hr Q0M PRN IV 05/19/17 11:00 06/18/17 10:59 05/19/17 11:20 5 MLS/HR Acetaminophen (Tylenol Tab) 650 mg Q6 PRN PO 05/19/17 12:30 06/18/17 12:29 Digoxin (Lanoxin Tab) 0.125 mg DAILY@16 PO 05/19/17 16:00 06/18/17 15:59 05/19/17 17:16 0.125 MG Levothyroxine Sodium (Synthroid Tab) 25 mcg DAILYBB PO 05/20/17 06:00 06/19/17 05:59 05/20/17 06:43 25 MCG Magnesium Hydroxide (Milk Of Magnesia Susp) 30 ml UD PRN PO 05/19/17 12:30 06/18/17 12:29 Potassium Chloride/Dextrose/ Sod Cl 1,000 ml @ 50 mls/hr Q20H IV 05/19/17 14:00 06/18/17 13:59 05/20/17 11:40 50 MLS/HR Miscellaneous Information (Icu Protocol For Hyperglycemia) 1 ea PRN PRN N/A 05/19/17 12:30 05/21/17 12:29 Pantoprazole Sodium (Protonix Tab) 40 mg BID PO 05/20/17 21:00 06/19/17 20:59 Diclofenac Sodium (Voltaren 1% Top Gel) 1 appln QID EXT 05/20/17 13:00 06/19/17 12:59 Diltiazem HCl (Cardizem Tab) 30 mg BID PO 05/20/17 21:00 06/19/17 20:59 Epinephrine (Epipen) 0.3 mg UD PRN IM 05/20/17 12:45 06/19/17 12:44 Cholecalciferol (Vitamin D Tab) 2,000 inter.unit DAILY PO 05/21/17 09:00 06/20/17 08:59 Metoprolol Succinate (Toprol Xl Tab) 50 mg BID PO 05/20/17 21:00 06/19/17 20:59 Vital Signs: Date Time Temp Pulse Resp B/P (MAP) Pulse Ox O2 Delivery O2 Flow Rate FiO2 05/20/17 12:45 36.4 98 22 99 05/20/17 12:00 Room Air 05/20/17 11:53 98 22 103/56 (72) 99 Room Air 05/20/17 11:02 91 13 103/53 (70) 94 Room Air 05/20/17 10:31 81 16 102/62 (75) 99 Room Air 05/20/17 10:01 76 13 97/67 (77) 05/20/17 09:02 89 16 109/55 (73) 100 Oxymask 4.0 05/20/17 08:02 36.4 88 16 99/70 (80) 99 Oxymask 4.0 05/20/17 08:00 Oxymask 4.0 05/20/17 08:00 Nasal Cannula 05/20/17 07:01 71 12 103/70 (81) 99 Oxymask 4.0 05/20/17 05:02 88 13 95/60 (72) 100 Oxymask 2.0 05/20/17 04:02 36.8 91 15 95/63 (74) 100 Oxymask 2.0 05/20/17 04:00 100 Oxymask 2.0 05/20/17 03:02 100 18 107/59 (75) 99 Oxymask 2.0 05/20/17 02:02 80 22 112/57 (75) 100 Room Air 05/20/17 01:02 93 17 106/63 (77) 98 Room Air 05/20/17 00:02 36.6 104 13 114/60 (78) 90 Room Air 05/19/17 23:59 98 Room Air 05/19/17 22:00 37.0 94 14 104/55 (71) 98 Room Air 05/19/17 20:00 37.0 90 18 105/57 (73) 95 Room Air 05/19/17 20:00 95 Room Air 05/19/17 18:00 36.9 86 16 106/45 (65) 95 Room Air 05/19/17 17:16 103 05/19/17 16:15 36.8 113 22 119/64 (82) 99 Oxymask 05/19/17 16:15 99 Oxymask 4.0 05/19/17 16:10 105 20 117/83 (78) 99 Oxymask 4 05/19/17 16:00 77 24 101/68 (78) 98 Oxymask 4 05/19/17 15:50 36.9 127 19 104/78 99 Oxymask 4 05/19/17 14:13 36.8 89 20 107/80 99 2.0 Laboratory Results: Last 24 Hours Test 05/19/17 14:50 05/19/17 18:03 05/19/17 20:27 05/20/17 00:07 Prothrombin Time 12.3 SECONDS Prothromb Time International Ratio 1.2 Bedside Glucose 97 mg/dl Hemoglobin 9.9 g/dL 10.1 g/dL Hematocrit 29.3 % 30.3 % Test 05/20/17 00:13 05/20/17 05:32 05/20/17 05:39 05/20/17 12:25 Bedside Glucose 153 mg/dl 97 mg/dl White Blood Count 6.33 K/uL Red Blood Count 3.09 M/uL Hemoglobin 9.2 g/dL 10.8 g/dL Hematocrit 27.7 % 32.1 % Mean Corpuscular Volume 89.6 fL Mean Corpuscular Hemoglobin 29.8 pg Mean Corpuscular Hemoglobin Concent 33.2 g/dl Platelet Count 156 K/uL Mean Platelet Volume 10.5 fL Neutrophils (%) (Auto) 54.2 % Lymphocytes (%) (Auto) 35.2 % Monocytes (%) (Auto) 8.5 % Eosinophils (%) (Auto) 1.6 % Basophils (%) (Auto) 0.2 % Neutrophils # (Auto) 3.43 K/uL Lymphocytes # (Auto) 2.23 K/uL Monocytes # (Auto) 0.54 K/uL Eosinophils # (Auto) 0.10 K/uL Basophils # (Auto) 0.01 K/uL RDW Standard Deviation 48.0 fL RDW Coefficient of Variation 14.7 % Immature Granulocyte % (Auto) 0.3 % Immature Granulocyte # (Auto) 0.02 K/uL Sodium Level 144 mmol/L Potassium Level 3.9 mmol/L Chloride Level 114 mmol/L Carbon Dioxide Level 26 mmol/L Anion Gap 4.0 mmol/L Blood Urea Nitrogen 41 mg/dl Creatinine 0.94 mg/dl Est Creatinine Clear Calc Drug Dose 43.5 ml/min Estimated GFR () 62.3 Estimated GFR (Non- 53.8 BUN/Creatinine Ratio 43.7 Random Glucose 94 mg/dl Calcium Level 7.6 mg/dl Phosphorus Level 2.4 mg/dl Magnesium Level 1.7 mg/dl Total Bilirubin 0.4 mg/dl Direct Bilirubin 0.1 mg/dl Aspartate Amino Transf (AST/SGOT) 11 U/L Alanine Aminotransferase (ALT/SGPT) 13 U/L Alkaline Phosphatase 45 U/L Total Protein 4.9 gm/dl Albumin 2.6 gm/dl
[2017-05-20] MEDS ORDERED: SODIUM CHLORIDE 0.9% 500ML 500 ML IV SCH (15:45)
[2017-05-20] MEDS: DIGOXIN 0.125 MG TAB PO SCH (16:28)
[2017-05-20 19:07] LABS: HEMATOCRIT 24.7 % (37-47)
[2017-05-20] MEDS: METOPROLOL SUCC 50MG EXT REL TAB PO SCH (19:52)
[2017-05-20] MEDS: PANTOprazole SOD 40 MG TAB PO SCH (19:52)
[2017-05-20] MEDS: DILTIAZEM HCL 30 MG TAB PO SCH (19:53)
[2017-05-21] VITALS (9 sets, daily range): BP systolic 91–196; BP diastolic 60–80; PULSE 72–100; TEMP 36.3–36.9; O2SAT 93–100
[2017-05-21 00:27] LABS: HEMATOCRIT 25.9 % (37-47)
[2017-05-21] MEDS: LEVOTHYROXINE 25 MCG TAB PO SCH (05:49)
[2017-05-21] MEDS: D5NSS + 20MEQ KCL 1,000 ML IV SCH (05:49)
[2017-05-21 06:49] LABS: HEMATOCRIT 25.2 % (37-47)
[2017-05-21 07:27] LABS: ALT/SGPT 13 U/L (12-78); BLOOD UREA NITROGEN 21 mg/dl (7-18); BUN/CREATININE RATIO 22.3 (10-20); CALCIUM 7.9 mg/dl (8.5-10.1); CARBON DIOXIDE 28 mmol/L (21-32); CHLORIDE 114 mmol/L (98-107); CREATININE 0.96 mg/dl (0.60-1.20); GLUCOSE 101 mg/dl (70-99); MAGNESIUM 1.9 mg/dl (1.8-2.4); POTASSIUM 4.3 mmol/L (3.5-5.1); SODIUM 147 mmol/L (136-145)
[2017-05-21 07:28] LABS: ALKALINE PHOSPHATASE 46 U/L (45-117); AST/SGOT 14 U/L (15-37)
[2017-05-21] MEDS: METOPROLOL SUCC 50MG EXT REL TAB PO SCH ×2 (07:56→20:59)
[2017-05-21] MEDS: DILTIAZEM HCL 30 MG TAB PO SCH ×2 (07:57→20:59)
[2017-05-21] MEDS: CHOLECALCIFEROL 1000 INTER.UNIT TAB PO SCH (07:57)
[2017-05-21] MEDS: PANTOprazole SOD 40 MG TAB PO SCH ×2 (07:57→20:59)
[2017-05-21] MEDS: DICLOFENAC SOD 1% GEL 100 GM TUBE EXT SCH ×4 (07:58→20:58)
--- NOTE | 2017-05-21 11:05 | Gastroenterology Progress Note ---
Progress Note Date of Service: May 21, 2017 Subjective Pt evaluation today including: conversation w/ patient, physical exam, chart review, lab review, review of inpatient medication list Pt sitting up in bed, watching TV. Said "feels better today". Denies any abd pain, n/v. Noted black stools in ostomy bag. Hgb dropped 1 pt over 24hrs. Review of Systems Constitutional: No fever, No chills Respiratory: No cough, No shortness of breath Cardiac: No chest pain Abdomen: + GI bleeding, No pain, No nausea, No vomiting Medications Current Inpatient Medications Medications (Trade) Dose Ordered Sig/Klaus Route Start Time Stop Time Status Last Admin Dose Admin Diltiazem HCl 125 mg/Dextrose 125 ml @ 0 mls/hr Q0M PRN IV 05/19/17 11:00 06/18/17 10:59 05/19/17 11:20 5 MLS/HR Acetaminophen (Tylenol Tab) 650 mg Q6 PRN PO 05/19/17 12:30 06/18/17 12:29 Digoxin (Lanoxin Tab) 0.125 mg DAILY@16 PO 05/19/17 16:00 06/18/17 15:59 05/20/17 16:28 0.125 MG Levothyroxine Sodium (Synthroid Tab) 25 mcg DAILYBB PO 05/20/17 06:00 06/19/17 05:59 05/21/17 05:49 25 MCG Magnesium Hydroxide (Milk Of Magnesia Susp) 30 ml UD PRN PO 05/19/17 12:30 06/18/17 12:29 Potassium Chloride/Dextrose/ Sod Cl 1,000 ml @ 50 mls/hr Q20H IV 05/19/17 14:00 06/18/17 13:59 05/21/17 05:49 50 MLS/HR Miscellaneous Information (Icu Protocol For Hyperglycemia) 1 ea PRN PRN N/A 05/19/17 12:30 05/21/17 12:29 Pantoprazole Sodium (Protonix Tab) 40 mg BID PO 05/20/17 21:00 06/19/17 20:59 05/21/17 07:57 40 MG Diclofenac Sodium (Voltaren 1% Top Gel) 1 appln QID EXT 05/20/17 13:00 06/19/17 12:59 05/21/17 07:58 1 APPLN Diltiazem HCl (Cardizem Tab) 30 mg BID PO 05/20/17 21:00 06/19/17 20:59 05/21/17 07:57 30 MG Epinephrine (Epipen) 0.3 mg UD PRN IM 05/20/17 12:45 06/19/17 12:44 Cholecalciferol (Vitamin D Tab) 2,000 inter.unit DAILY PO 05/21/17 09:00 06/20/17 08:59 05/21/17 07:57 2,000 INTER.UNIT Metoprolol Succinate (Toprol Xl Tab) 50 mg BID PO 05/20/17 21:00 06/19/17 20:59 Objective Vital Signs Date Time Temp Pulse Resp B/P (MAP) Pulse Ox O2 Delivery O2 Flow Rate FiO2 05/21/17 08:00 Room Air 05/21/17 07:55 92 96/66 (76) 05/21/17 07:09 36.9 91 20 91/62 (72) 96 Room Air 05/21/17 03:30 36.7 91 20 93/60 (71) 93 Room Air 05/21/17 03:30 Room Air 05/20/17 23:43 36.6 76 19 111/78 (89) 96 Room Air 05/20/17 23:40 Room Air 05/20/17 19:55 Room Air 05/20/17 19:50 94 94/61 (72) 05/20/17 19:21 36.8 89 18 106/63 (77) 90 Room Air 05/20/17 17:54 73 94/61 (72) 05/20/17 16:28 102 05/20/17 16:20 36.4 97 18 79/45 (56) 97 Room Air 05/20/17 16:00 Room Air 05/20/17 15:06 36.4 103 16 93/56 (68) 96 Room Air 05/20/17 14:00 80 17 98 Room Air 05/20/17 12:45 36.4 98 22 99 05/20/17 12:00 Room Air 05/20/17 11:53 98 22 103/56 (72) 99 Room Air 05/20/17 11:02 91 13 103/53 (70) 94 Room Air Physical Exam General Appearance: WD/WN, no apparent distress Eyes: normal inspection, PERRL, EOMI Neck: supple, no JVD, trachea midline Respiratory/Chest: normal breath sounds, no respiratory distress, no accessory muscle use Cardiovascular: regular rate, rhythm, no gallop, no murmur Abdomen: normal bowel sounds, non tender, soft, + pertinent finding (LLQ ostomy pink, moist, black soft stools in bag ) Extremities: normal inspection, no pedal edema, no calf tenderness Neurologic/Psych: alert, normal mood/affect, + disoriented Skin: normal color, no jaundice, no rash Laboratory Results Last 24 Hours Test 05/20/17 12:25 05/20/17 18:45 05/21/17 00:19 05/21/17 06:33 Hemoglobin 10.8 g/dL 8.3 g/dL 8.5 g/dL 8.3 g/dL Hematocrit 32.1 % 24.7 % 25.9 % 25.2 % Sodium Level 147 mmol/L Potassium Level 4.3 mmol/L Chloride Level 114 mmol/L Carbon Dioxide Level 28 mmol/L Anion Gap 5.0 mmol/L Blood Urea Nitrogen 21 mg/dl Creatinine 0.96 mg/dl Est Creatinine Clear Calc Drug Dose 42.3 ml/min Estimated GFR () 60.8 Estimated GFR (Non- 52.4 BUN/Creatinine Ratio 22.3 Random Glucose 101 mg/dl Calcium Level 7.9 mg/dl Magnesium Level 1.9 mg/dl Total Bilirubin 0.4 mg/dl Direct Bilirubin < 0.1 mg/dl Aspartate Amino Transf (AST/SGOT) 14 U/L Alanine Aminotransferase (ALT/SGPT) 13 U/L Alkaline Phosphatase 46 U/L Total Protein 5.1 gm/dl Albumin 2.6 gm/dl Assessment and Plan Pt is a 89 y/o female, admitted for coffee ground emesis, ? red stools, anemia, elevated BUN suspected for UGI bleeding. Hx of Coumadin use for Afib, ASA, INR on admission was 3.6. She had been given K centra, Vit K, 1U PRBC transfusion. H /H stable. EGD 05/[address] Almaraz w/o source of UGI bleed. ? diverticular bleed though would not pursue lower endoscopy at this time given H/ H stabilizing, BUN decreasing. Last colonoscopy in 2013 - Monitor H/H and transfuse prn - Continue to defer further endoscopy workup - FL diet; advance as tolerated - Protonix 40mg BID ATTESTATION: I have performed a history and physical examination of this patient and reviewed the electronic record. Specifically, on physical examination there is no abdominal tenderness. I have discussed the case with JACK Bonilla. The above note reflects my findings, conclusions, and recommendations. Cody Youngblood MD
--- NOTE | 2017-05-21 15:26 | Progress Note ---
Subjective Date of Service: May 21, 2017. Subjective Pt evaluation today including: conversation w/ patient, physical exam, lab review, conversation w/ speech correction consultant, review of inpatient medication list Pain: no pain PO Intake: tolerating full liquids Voiding: no voiding problems patient feeling well, no vomiting, no further dark output in ostomy no abdominal pain, tolerating full liquids no plans for endoscopy per GI, can advance diet reviewed labs, Hb relatively stable, 8.3 today Problem List Medical Problems: (1) Coagulopathy Status: Acute (2) GI bleed Status: Acute (3) Hypotension Status: Acute (4) Rapid atrial fibrillation Status: Acute (5) UTI (urinary tract infection) Status: Acute Review of Systems Constitutional: + weakness, + fatigue Respiratory: + dyspnea on exertion All Other Systems: Reviewed and Negative Medications Current Inpatient Medications Medications (Trade) Dose Ordered Sig/Klaus Route Start Time Stop Time Status Last Admin Dose Admin Diltiazem HCl 125 mg/Dextrose 125 ml @ 0 mls/hr Q0M PRN IV 05/19/17 11:00 06/18/17 10:59 05/19/17 11:20 5 MLS/HR Acetaminophen (Tylenol Tab) 650 mg Q6 PRN PO 05/19/17 12:30 06/18/17 12:29 Digoxin (Lanoxin Tab) 0.125 mg DAILY@16 PO 05/19/17 16:00 06/18/17 15:59 05/20/17 16:28 0.125 MG Levothyroxine Sodium (Synthroid Tab) 25 mcg DAILYBB PO 05/20/17 06:00 06/19/17 05:59 05/21/17 05:49 25 MCG Magnesium Hydroxide (Milk Of Magnesia Susp) 30 ml UD PRN PO 05/19/17 12:30 06/18/17 12:29 Potassium Chloride/Dextrose/ Sod Cl 1,000 ml @ 50 mls/hr Q20H IV 05/19/17 14:00 06/18/17 13:59 05/21/17 05:49 50 MLS/HR Pantoprazole Sodium (Protonix Tab) 40 mg BID PO 05/20/17 21:00 06/19/17 20:59 05/21/17 07:57 40 MG Diclofenac Sodium (Voltaren 1% Top Gel) 1 appln QID EXT 05/20/17 13:00 06/19/17 12:59 05/21/17 13:19 1 APPLN Diltiazem HCl (Cardizem Tab) 30 mg BID PO 05/20/17 21:00 06/19/17 20:59 05/21/17 07:57 30 MG Epinephrine (Epipen) 0.3 mg UD PRN IM 05/20/17 12:45 06/19/17 12:44 Cholecalciferol (Vitamin D Tab) 2,000 inter.unit DAILY PO 05/21/17 09:00 06/20/17 08:59 05/21/17 07:57 2,000 INTER.UNIT Metoprolol Succinate (Toprol Xl Tab) 50 mg BID PO 05/20/17 21:00 06/19/17 20:59 Objective Vital Signs Date Time Temp Pulse Resp B/P (MAP) Pulse Ox O2 Delivery O2 Flow Rate FiO2 05/21/17 12:45 Room Air 05/21/17 10:43 36.7 81 20 99/63 (75) 97 Room Air 05/21/17 08:00 Room Air 05/21/17 07:55 92 96/66 (76) 05/21/17 07:09 36.9 91 20 91/62 (72) 96 Room Air 05/21/17 03:30 36.7 91 20 93/60 (71) 93 Room Air 05/21/17 03:30 Room Air 05/20/17 23:43 36.6 76 19 111/78 (89) 96 Room Air 05/20/17 23:40 Room Air 05/20/17 19:55 Room Air 05/20/17 19:50 94 94/61 (72) 05/20/17 19:21 36.8 89 18 106/63 (77) 90 Room Air 05/20/17 17:54 73 94/61 (72) 05/20/17 16:28 102 05/20/17 16:20 36.4 97 18 79/45 (56) 97 Room Air 05/20/17 16:00 Room Air Physical Exam General Appearance: no apparent distress, + obese Eyes: normal inspection, EOMI, sclerae normal ENT: normal ENT inspection, hearing grossly normal, pharynx normal Neck: supple, no adenopathy, no JVD, trachea midline Respiratory/Chest: chest non-tender, lungs clear, normal breath sounds, no respiratory distress, no accessory muscle use Cardiovascular: regular rate, rhythm, no edema, no gallop, no JVD, no murmur Abdomen: normal bowel sounds, non tender, soft, no organomegaly Extremities: normal range of motion, non-tender, normal inspection, no pedal edema, no calf tenderness, pelvis stable Neurologic/Psychiatric: fruit pitter II-XII nml as tested, no motor/sensory deficits, alert, normal mood/affect, oriented x 3 Skin: normal color, warm/dry, no rash Lymphatic: no adenopathy Laboratory Results Last 24 Hours Test 05/20/17 18:45 05/21/17 00:19 05/21/17 06:33 Hemoglobin 8.3 g/dL 8.5 g/dL 8.3 g/dL Hematocrit 24.7 % 25.9 % 25.2 % Sodium Level 147 mmol/L Potassium Level 4.3 mmol/L Chloride Level 114 mmol/L Carbon Dioxide Level 28 mmol/L Anion Gap 5.0 mmol/L Blood Urea Nitrogen 21 mg/dl Creatinine 0.96 mg/dl Est Creatinine Clear Calc Drug Dose 42.3 ml/min Estimated GFR () 60.8 Estimated GFR (Non- 52.4 BUN/Creatinine Ratio 22.3 Random Glucose 101 mg/dl Calcium Level 7.9 mg/dl Magnesium Level 1.9 mg/dl Total Bilirubin 0.4 mg/dl Direct Bilirubin < 0.1 mg/dl Aspartate Amino Transf (AST/SGOT) 14 U/L Alanine Aminotransferase (ALT/SGPT) 13 U/L Alkaline Phosphatase 46 U/L Total Protein 5.1 gm/dl Albumin 2.6 gm/dl Assessment and Plan 89 years with past medical history of colon cancer status post resection and colostomy, chronic atrial fibrillation on Coumadin, hypertension, CAD and previous GI bleed in April 2016. Presented with GIB (dark output in ostomy) GIB: Hemoglobin check showed hemoglobin of 10.5 on admission which is below her most recent Hb 12.5 09/2016 Hb stable in low 8's, 8.3 today, did receive a transfusion earlier in admission INR was reversed as mentioned above EGD shows no bleeding, holding on c-scope for now given Hb stable Protonix drip converted to BID GI started on clears, advanced to full liquids today and can advance to food this evening Afib/HTN: resume PO meds, cardizem and metoprolol Coumadin on hold as above Aspirin on hold also resume in a few days once it is clear that Hb is stable Hx of TIA: aspirin on hold Other: Full code SCD boots for DVT prophylaxis keep on tele today, try to transfer tomorrow if Hb stable
[2017-05-21] MEDS: DIGOXIN 0.125 MG TAB PO SCH (16:04)
[2017-05-22] MEDS: D5NSS + 20MEQ KCL 1,000 ML IV SCH (00:56)
[2017-05-22] MEDS ORDERED: NURSING VERBAL MED ORDER ONE (01:45)
[2017-05-22 04:48] VITALS: BP 111/74; PULSE 70; TEMP 36.5; O2SAT 96
[2017-05-22] MEDS: LEVOTHYROXINE 25 MCG TAB PO SCH (06:14)
[2017-05-22 07:17] VITALS: BP 127/76; PULSE 79; TEMP 36.5; O2SAT 98
[2017-05-22 08:08] LABS: HEMATOCRIT 26.9 % (37-47)
[2017-05-22] MEDS: METOPROLOL SUCC 50MG EXT REL TAB PO SCH (08:11)
[2017-05-22] MEDS: PANTOprazole SOD 40 MG TAB PO SCH (08:12)
[2017-05-22] MEDS: DICLOFENAC SOD 1% GEL 100 GM TUBE EXT SCH ×2 (08:12→13:00)
[2017-05-22] MEDS: DILTIAZEM HCL 30 MG TAB PO SCH (08:12)
[2017-05-22] MEDS: CHOLECALCIFEROL 1000 INTER.UNIT TAB PO SCH (08:12)
[2017-05-22 08:36] LABS: BUN/CREATININE RATIO 16.2 (10-20); CREATININE 0.96 mg/dl (0.60-1.20); MAGNESIUM 1.9 mg/dl (1.8-2.4); POTASSIUM 4.1 mmol/L (3.5-5.1)
[2017-05-22 10:55] VITALS: BP 110/71; PULSE 63; TEMP 36.5; O2SAT 99
[2017-05-22 11:20] VITALS: BP 110/71
[2017-05-22 13:25] LABS: HEMATOCRIT 27.3 % (37-47)
[2017-05-22] MEDS ORDERED: PRT40 PO (13:38)
--- NOTE | 2017-05-22 13:45 | Discharge Instructions ---
Discharge Instructions Date of Service May 22, 2017. Admission Reason for Admission: Gi Bleed Discharge Discharge Diagnosis / Problem: GI bleed, acute blood loss anemia Discharge Goals Goal(s): Decrease discomfort, Improve function, Improve disease control Activity Recommendations Activity Level: Assistance Required Therapies: Physical Therapy, Occupational Therapy Lifting Limitations: none Exercise/Sports Limitations: as tolerated Shower/Bathe: no limitations . Additional Information Patient informed of condition: Yes Advance Directives: Yes DNR: No Level of Care: Skilled Communicable Disease: No Prognosis: Stable Oxygen at (LPM): no Dao Catheter: No Instructions / Follow-Up Instructions / Follow-Up Medications - PROTONIX: 40mg twice a day for a month, then can decrease to once daily Acute blood loss anemia, GI bleed transfused one unit PRBC, Hb has been stable, trending upward for several days no further signs of bleeding EGD normal, GI recommends holding on colonoscopy since Hb stable and given patient's age Hb 9.1 on the day of discharge Can resume Coumadin at previous dosing starting tomorrow FOLLOW UP - physician at [facility] this week Current Hospital Diet Patient's current hospital diet: Low Fat Diet, Low Fiber Diet Discharge Diet Recommended Diet: AHA Diet (Heart Healthy) Procedures Procedures Performed: Esophagogastroduodenoscopy Pending Studies Studies pending at discharge: no Physician Orders On Transfer Additional Orders: check CBC on 05/27/17 POLST Discussion: Not Applicable Medical Emergencies . Who to Call and When: Medical Emergencies: If at any time you feel your situation is an emergency, please call 911 immediately. . Non-Emergent Contact Non-Emergency issues call your: Primary Care Provider Call Non-Emergent contact if: you have any medication questions . . "Provider Documentation" section prepared by Obey Hayes. . Core Measure Problem Core Measures: None [place] Drug Monitoring Program Search Results: no issues identified
[2017-05-22 14:07] VITALS: BP 110/71; PULSE 63; TEMP 36.5; O2SAT 99
--- NOTE | 2017-05-23 08:15 | Discharge Summary ---
Discharge Summary Date of Service May 22, 2017. Discharge Summary Admission Date: May 19, 2017 at 12:33 Discharge Date: May 22, 2017 Discharge Disposition: [facility] facility Principal Diagnosis: Acute blood loss anemia Problems/Secondary Diagnoses: GI bleed h/o colon cancer with partial colectomy chronic atrial fibrillation on Coumadin HTN Immunizations: Have You Had Influenza Vaccine: Yes Influenza Vaccine Date: Feb 05, 2009 History of Tetanus Vaccine?: Yes History of Pneumococcal: Yes Pneumococcal Date: Feb 05, 2009 History of Hepatitis B Vaccine: Unknown Procedures: EGD - normal Consultations: Gastroenterology Medication Reconciliation New Medications: Pantoprazole (Pantoprazole Sodium) 40 Mg Tab 40 MG PO BID, #60 TAB 2 Refills Continued Medications: Acetaminophen (Tylenol) 325 Mg Tab 650 MG PO Q6 PRN for Pain or Fever, TAB Aspirin (Aspirin Low Dose) 81 Mg Tab 81 MG PO DAILY Bisacodyl (Bisac-Evac) 10 Mg Sup 1 SUPP PEG UD PRN for IF NO EFFECT FROM MOM Cholecalciferol (Vitamin D3) 2,000 Unit Cap 1 CAP PO DAILY for 90 Days, #90 CAP 3 Refills Diclofenac Sodium (Topical) (Voltaren 1% Top Gel) 1 % Gel 2 GM TOP QID to left shoulder Diclofenac Sodium (Topical) (Voltaren 1% Top Gel) 1 % Gel 4 GM TOP QID to left knee Digoxin (Digoxin) 0.125 Mg Tab 0.125 MG PO DAILY@16, #30 TAB Diltiazem Hcl (Cardizem) 30 Mg Tab 30 MG PO BID, #60 Epinephrine (Epipen) 0.3 Mg/0.3 Ml Inj 0.3 MG IM UD PRN for ALLERGIC REACTION, BOX Levothyroxine Sodium (Levothyroxine Sodium) 25 Mcg Tab 1 TAB PO DAILY for 90 Days, #90 TAB 3 Refills Magnesium Hydroxide (Milk Of Magnesia) 30 Ml Susp 30 ML PO UD PRN for NO BM X 3 DAYS, ML Metoprolol Succinate (Metoprolol Succinate ER) 50 Mg Tabcr 50 MG PO BID, #60 TABS Sodium Phosphate/Biphosphate (Fleet Enema) Tammy 1 EA MI UD PRN for ON DAY 4 IF NO BM AFTER SUPPOS, BTL Warfarin Sodium (Warfarin Sodium) 3 Mg Tab 1 TAB PO MWF for 90 Days, TAB 3 Refills give at 2030 Warfarin Sodium (Warfarin Sodium) 4 Mg Tab 1 TAB PO 4XWK for 90 Days, TAB 3 Refills TUES<THURS<SAT<SUN @ 2030 Discharge Exam Patient doing well, eating well, no further black stools in ostomy, no vomiting. Hb trending up, 9.1 on the day of discharge. No plans for colonoscopy per GI. Patient evaluated by therapy, they recommended PT/OT when she returns to [facility]. D/w case management, she was a bed hold, can return to [facility]. Review of Systems: Constitutional: + weakness, + fatigue, No fever, No chills, No sweats, No weight loss, No problem reported Eyes: No worsening of vision, No eye pain, No redness, No discharge, No diplopia, No problem reported ENT: No hearing loss, No unusual epistaxis, No nasal symptoms, No sore throat, No tinnitus, No dental problems, No trouble swallowing, No problem reported Respiratory: + dyspnea on exertion (mild), No cough, No sputum, No wheezing , No shortness of breath, No dyspnea at rest, No hemoptysis, No problem reported Cardiovascular: No chest pain, No orthopnea, No PND, No edema, No claudication, No palpitations, No problem reported Abdomen: + problem reported (ostomy), No pain, No nausea, No vomiting, No diarrhea, No constipation, No GI bleeding Musculoskeletal: + joint pain, + muscle pain, No swelling, No calf pain, No problem reported Genitourinary - Female: No dysuria, No urinary frequency, No urinary urgency , No urinary incontinence, No urinary retention, No hematuria Neurologic: + weakness, + balance problems, No memory loss, No paralysis, No numbness/tingling, No vertigo, No problem reported Psychiatric: No depression symptoms, No anhedonism, No anxiety, No insomnia , No substance abuse, No problem reported Endocrine: No fatigue, No excessive thirst, No excessive urination, No problem reported Hematologic / Lymphatic: No abnormal bleeding/bruising, No clotting problems , No swollen lymph nodes, No night sweats, No problem reported Integumentary: No rash, No itch, No new/changing skin lesions, No color change, No bleeding, No problem reported Physical Exam: General Appearance: no apparent distress, + obese Eyes: normal inspection, EOMI, sclerae normal ENT: normal ENT inspection, hearing grossly normal, pharynx normal Neck: supple, no adenopathy, no JVD, no carotid bruits Respiratory/Chest: chest non-tender, lungs clear, normal breath sounds, no respiratory distress, no accessory muscle use Cardiovascular: regular rate, rhythm, no edema, no gallop, no JVD, no murmur , normal peripheral pulses Abdomen / GI: normal bowel sounds, non tender, soft, no organomegaly Extremities: normal inspection, no calf tenderness, normal capillary refill , no pedal edema, normal range of motion, pelvis stable Neurologic/Psychiatric: certified medical asst II-XII nml as tested, alert, normal mood/affect , normal reflexes, oriented x 3, + motor weakness Skin: normal color, warm/dry, no rash Hospital Course 89 years with past medical history of colon cancer status post resection and colostomy, chronic atrial fibrillation on Coumadin, hypertension, CAD and previous GI bleed in April 2016. Presented with GIB (dark output in ostomy) GIB, acute blood loss anemia: Hemoglobin check showed hemoglobin of 10.5 on admission which was below her most recent Hb of 12.5 in September 2016 transfused 1 unit of PRBC, tolerated well Hb actually dropped further, as low as 8.1, so initial Hb of 10.5 was likely not accurate over the next several days Hb barbara steadily, was 9.1 on the day of discharge EGD showed no bleeding, holding on c-scope for now given Hb stable Protonix drip converted to BID, GI recommends continuing Protonix BID for a month and then once a day GI started on clears, advanced to regular diet, tolerated well Afib/HTN: resume PO meds, cardizem and metoprolol INR reversed down to 1.1 can resume Coumadin on 05/23/17 Aspirin was held but can be resumed on discharge Hx of TIA: resume aspirin on discharge Other: Full code SCD boots for DVT prophylaxis transfer back to [facility] Total Time Spent: Greater than 30 minutes This includes examination of the patient, discharge planning, medication reconciliation, and communication with other providers. Discharge Instructions Please refer to the electronic Patient Visit Report (Discharge Instructions) for additional information. Follow-Up physician at [facility] Additional Copies To [facility]
== END 2017-05-22 14:51 | DRG 813 ==
LOC: EDBD 10:39 → C.EDA 10:40 → C.MSICU 12:33 → ENRESERV 12:45 → C.2T 05-20 12:28 → ENRESERV 05-20 12:44
PROVIDERS: ADMIT Internal Medicine; ATTEND Internal Medicine
PROC: 0DJ08ZZ Inspection of Upper Intestinal Tract, Via Natural or Artificial Opening Endoscopic (ICD-10-PCS; principal; 2017-05-19 14:30)
DX: D68.32 Hemorrhagic disorder due to extrinsic circulating anticoagulants (principal); R57.1 Hypovolemic shock; D62 Acute posthemorrhagic anemia; K92.1 Melena; K29.70 Gastritis, unspecified, without bleeding; T45.515A Adverse effect of anticoagulants, initial encounter; I48.2 Chronic atrial fibrillation; I10 Essential (primary) hypertension; I25.10 Atherosclerotic heart disease of native coronary artery without angina pectoris; M19.90 Unspecified osteoarthritis, unspecified site; F03.90 Unspecified dementia, unspecified severity, without behavioral disturbance, psychotic disturbance, mood disturbance, and anxiety; E66.9 Obesity, unspecified; I25.2 Old myocardial infarction; Z68.30 Body mass index [BMI] 30.0-30.9, adult; Z93.3 Colostomy status; Z86.73 Personal history of transient ischemic attack (TIA), and cerebral infarction without residual deficits; Z79.01 Long term (current) use of anticoagulants; Z79.82 Long term (current) use of aspirin; Z79.84 Long term (current) use of oral hypoglycemic drugs; Z79.899 Other long term (current) drug therapy